=== PATIENT | female | born 1965 | race Caucasian/White ===

== ENCOUNTER 2024-02-04 16:42 | Emergency (ER) | payer OTHER, SELFPAY ==
[2024-02-04] VITALS (12 sets, daily range): BP systolic 136–165; BP diastolic 89–96; PULSE 89–119; RESP 18–23; TEMP 36.8; O2SAT 97–100
--- NOTE | ~2024-02-04 | CT_ITS ---
CT abdomen pelvis w con Ordering provider: Keshia Hurst MD History: 58 years Female with . VOMITING . Comparison: None. Technique: CT abdomen and pelvis with IV and without oral contrast. Automated exposure control and it erative reconstruction technique were employed. The dose-length product was 778.07 mGy-cm. Findings: VISUALIZED LOWER CHEST: Dependent atelectatic changes. UPPER ABDOMINAL ORGANS: Liver: Normal. Gallbladder: Normal. Spleen: Normal. Stomach/duodenum: Gastrostomy tube is noted. Thickened lower esophagus wall which may indicate reflux esophagitis. Pancreas: Normal. Adrenals: Normal. Kidneys: Normal. PELVIC ORGANS: The bladder shows slightly thickened wall. Calcified areas seen in the right side of t he bladder suggestive of a stone. BOWEL AND MESENTERY: Colon: No evidence of diverticulitis. Impacted fecal material is seen in the rectum. Proctitis is als o noted. Normal appendix. Small Bowel: Normal. No obstruction. Peritoneum/mesentery: No free air or free fluid. No mesenteric lymphadenopathy. RETROPERITONEUM: Mild atheromatous disease of the abdominal aorta. No retroperitoneal lymphadenopat hy. MUSCULOSKELETAL: Superficial soft tissues: The superficial soft tissues are normal. Bones: Age appropriate degenerative changes of the spine. bilateral hip arthroplasty. Bilateral sacro iliitis. IMPRESSION: 1. Gastrostomy tube with no definite complication. 2. Thickened lower esophagus which may indicate reflux esophagitis. 3. Thickened wall of the urinary bladder which may indicate cystitis. 4. Stone is highly suggestive in the right side of the posterior aspect of the urinary bladder. 5. Impacted fecal material in the rectum with minimal proctitis. Reviewed, dictated and finalized at location A.
[2024-02-04 17:20] LABS: Basophils Absolute Auto 0.1 K/mm3 (0.0-0.1); Basophils Percent Auto 0.5 % (0.2-1.2); Eosinophils Absolute Auto 0.1 K/mm3 (0-0.3); Eosinophils Percent Auto 0.9 % (0-4.4); Hematocrit 41.3 % (37.0-47.0); Hemoglobin 13.3 g/dL (12.0-15.0); Immature Granulocyte Absolute 0.15 K/mm3 (0.00-0.031); Immature Platelet Fraction Pct 4.8 % (0.9-11.2); Lymphocytes Absolute Auto 2.68 K/mm3 (0.9-3.2); Mean Corpuscular HGB Conc 32.2 g/dl (32-36); Mean Corpuscular Hemoglobin 29.6 pg (26-34); Mean Platelet Volume 10.6 fl (7.4-10.4); Monocytes Percent Auto 6.4 % (2.6-8.5); Neutrophils Absolute Auto 10.9 K/mm3 (1.3-6.7); Neutrophils Percent Auto 73.2 % (45.5-73.1); Platelet Count Result 489 k/mm3 (150-375); Red Blood Count 4.49 M/mm3 (4.2-5.4); Red Cell Distribution Width 12.9 % (11.5-14.5); White Blood Count 14.9 K/mm3 (4.5-10.0)
[2024-02-04 17:34] LABS: Add Urine Microscopic? NO; Appearance Urine Clear (Clear); Bilirubin Urine Negative (Negative); Blood Urine Negative (Negative); Color Urine Yellow (Yellow); Glucose Urine UA Negative (Negative); Ketones Urine Negative (Negative); Leukocyte Esterase Ur Negative LEU/UL (Negative); Nitrate Urine Negative (Negative); Protein Urine Negative (Negative); Specific Grav Ur 1.016 (1.001-1.035); pH Urine 7.5 (5.0-9.0)
[2024-02-04 19:10] LABS: Alanine Aminotransferase 28 U/L (6-35); Alkaline Phosphatase 105 U/L (38-126); Anion Gap 8 mmol/L (4-12); Aspartate Amino Transferase 27 U/L (14-36); Bilirubin,Total 0.4 mg/dL (0.2-1.3); Blood Urea Nitrogen 15 mg/dL (7-17); Calcium 9.2 mg/dL (8.4-10.2); Carbon Dioxide 31 mmol/L (22-30); Chloride 100 mmol/L (98-107); Estimated Glomerular Filt Rate > 60; Glucose 102 mg/dL (65-110); Lipase 371 U/L (23-300); Sodium 139 mmol/L (137-145)
--- NOTE | 2024-02-04 19:17 | ED_ITS ---
HPI - Nausea/Vomiting/Diarrhea General Chief complaint: Nausea/Vomiting/Diarrhea Stated complaint: coffee ground emesis Time Seen by Provider: 02/04/24 19:06 Source: EMS Mode of arrival: EMS History of Present Illness HPI Narrative: 58 YEARS OLD WHITE MALE, CAME FROM [facility]ISON BY AMBULANCE BECAUSE OF TOE EPISODE OF COFFEE-GROUND EMESIS. STARTED 10 HOURS PRIOR TO ARRIVAL TO THE EMERGENCY ROOM HISTORY OF CVA RIGHT HEMIPLEGIA, ANSWER QUESTIONS ONLY YES ANY TIME TRYING TO COMMUNICATE. Related Data Allergies Allergy/AdvReac Type Severity Reaction Status Date / Time No Known Allergies Allergy Verified 02/04/24 20:30 Review of Systems Review of Systems: ROS unobtainable: Yes unobtainable due to medical condition and unobtainable due to mental status Exam Narrative: GENERAL APPEARANCE: WELL-DEVELOPED, WELL-NOURISHED SKIN: NORMAL COLOR HEAD: NORMOCEPHALIC, NONTRAUMATIC EYES: CLEAR CONJUNCTIVA ENT: OROPHARYNX NORMAL, EARS NORMAL, NOSE NORMAL NECK: SUPPLE, NONTENDER CHEST AND RESPIRATORY: AIRWAY PATENT, NO RESPIRATORY DISTRESS, NO ACCESSORY MUSCLE USE HEART: REGULAR RATE/RHYTHM ABDOMEN: SOFT, NONTENDER, NO ORGANOMEGALY, QUIET BOWEL SOUNDS, FEEDING TUBE IN PLACE VASCULAR: NORMAL PERIPHERAL PULSES, NORMAL CAPILLARY REFILL. MUSCULOSKELETAL: RIGHT HEMIPLEGIA NEUROLOGIC: RIGHT HEMIPLEGIA, ANSWERING YES TO ANY COMMUNICATION Course Vital Signs Vital signs: Vital Signs Temperature 36.8 C 02/04/24 16:44 Pulse Rate 98 02/04/24 16:44 Respiratory Rate 23 H 02/04/24 16:44 Blood Pressure 136/92 H 02/04/24 16:44 Pulse Oximetry 97 02/04/24 16:44 Oxygen Delivery Room Air 02/04/24 16:44 Temperature 36.8 C 02/04/24 16:44 Pulse Rate 110 H 02/04/24 20:01 Respiratory Rate 21 H 02/04/24 20:01 Blood Pressure 136/93 H 02/04/24 20:01 Pulse Oximetry 100 02/04/24 20:01 Oxygen Delivery Room Air 02/04/24 16:44 MDM - Nausea/Vomiting/Diarrhea MDM Narrative Medical decision making narrative: PATIENT CAME WITH COFFEE-GROUND EMESIS 10 HOUR PRIOR TO ARRIVAL. VITAL SIGNS ARE STABLE PHYSICAL EXAMINATION SHOWING COMFORTABLE PATIENT NOT IN ANY PAIN OR DISTRESS, RECTAL EXAM IS GUAIAC NEGATIVE DIFFERENTIAL DIAGNOSIS INCLUDE GI BLEED, GASTRITIS, ESOPHAGITIS, G-TUBE COMPLICATION BLOOD WORKUP TODAY SHOWED WBC 14.9, PLATELET 489, LIPASE 371, URINALYSIS SHOWED NO ACUTE ABNORMALITIES CT ABDOMEN AND PELVIS WITH IV CONTRAST SHOWED REFLUX ESOPHAGITIS, BLADDER STONE, IMPACTED FECAL MATERIAL IN THE RECTUM WITH MINIMAL PROCTITIS Differential Diagnosis Differential diagnosis: Likely other ( ABOVE) Medical Records Attestation: I reviewed the patient's medical records. Lab Data Attestation: I reviewed the patient's lab results. 02/04/24 17:12 02/04/24 18:46 Labs: Lab Results 02/04/24 02/04/24 02/04/24 Range/Units 17:12 17:27 18:46 WBC 14.9 H (4.5-10.0) K/mm3 RBC 4.49 (4.2-5.4) M/mm3 Hgb 13.3 (12.0-15.0) g/dL Hct 41.3 (37.0-47.0) % MCV 92.0 (80-100) fl MCH 29.6 (26-34) pg MCHC 32.2 (32-36) g/dl RDW 12.9 (11.5-14.5) % Plt Count 489 H (150-375) k/mm3 MPV 10.6 H (7.4-10.4) fl Immature Gran % (Auto) 1.0 H (0-0.5) % Neut % (Auto) 73.2 H (45.5-73.1) % Lymph % (Auto) 18.0 L (18.3-44.2) % [place] % (Auto) 6.4 (2.6-8.5) % Eos % (Auto) 0.9 (0-4.4) % Baso % (Auto) 0.5 (0.2-1.2) % Lymph # (Auto) 2.68 (0.9-3.2) K/mm3 [place] # (Auto) 1.0 H (0.1-0.6) K/mm3 Eos # (Auto) 0.1 (0-0.3) K/mm3 Baso # (Auto) 0.1 (0.0-0.1) K/mm3 Abs Immat Gran (auto) 0.15 H (0.00-0.031) K/mm3 Absolute Neuts (auto) 10.9 H (1.3-6.7) K/mm3 Absolute Nucleated RBC 0.000 (0.0-0.012) K/mm3 Nucleated RBC % 0.0 (0.0-0.2) % % Immature Plt Fraction 4.8 (0.9-11.2) % Sodium 139 (137-145) mmol/L Potassium 4.0 (3.4-5.0) mmol/L Chloride 100 (98-107) mmol/L Carbon Dioxide 31 H (22-30) mmol/L Anion Gap 8 (4-12) mmol/L BUN 15 (7-17) mg/dL Creatinine 0.50 L (0.7-1.0) mg/dL Estim Creat Clear Calc Not Reportable Estimated GFR > 60 (59 - ) Glucose 102 (65-110) mg/dL Calcium 9.2 (8.4-10.2) mg/dL Total Bilirubin 0.4 (0.2-1.3) mg/dL AST 27 (14-36) U/L ALT 28 (6-35) U/L Alkaline Phosphatase 105 (38-126) U/L Total Protein 7.0 (6.3-8.2) g/dL Albumin 4.0 (3.5-5.1) g/dL Lipase 371 H (23-300) U/L Urine Color Yellow (Yellow) Urine Appearance Clear (Clear) Urine pH 7.5 (5.0-9.0) Ur Specific [place] 1.016 (1.001-1.035) Urine Protein Negative (Negative) mg/dL Urine Glucose (UA) Negative (Negative) mg/dL Urine Ketones Negative (Negative) mg/dL Ur Blood (Man) Negative (Negative) Urine Nitrate Negative (Negative) Urine Bilirubin Negative (Negative) Urine Urobilinogen 1.0 (<2.0) mg/dL Leukocyte Esterase Rfl Negative (Negative) AMINTA/UL Imaging Data Radiologist's impression: Impressions Abdomen/Pelvis CT 02/04/24 22:27 IMPRESSION: 1. Gastrostomy tube with no definite complication. 2. Thickened lower esophagus which may indicate reflux esophagitis. 3. Thickened wall of the urinary bladder which may indicate cystitis. 4. Stone is highly suggestive in the right side of the posterior aspect of the urinary bladder. 5. Impacted fecal material in the rectum with minimal proctitis. Critical Care Time Critical Care Time Critical Care Time: No Discharge Plan Discharge Clinical Impression: Esophagitis, Constipation, Bladder stone [facility]position[facility] Condition: Improved Instructions: Constipation (ED), Esophagitis (ED) Additional Instructions: RETURN IF SYMPTOMS ARE WORSENING , CALL YOUR FAMILY PHYSICIAN FOR APPOINTMENT, TAKE TYLENOL NEEDED FOR ACHES AND PAIN, CONTINUE HOME MEDICATIONS. FLEET ENEMA Prescriptions: New pantoprazole [Protonix] 40 mg tablet,delayed release (DR/EC) 40 mg PO QAM 30 Days Qty: 30 0RF polyethylene glycol 3350 [Miralax] 17 gram powder in packet 17 g PO QID Qty: 30 0RF
[2024-02-04] MEDS: SODIUM CHLORIDE 0.9% IV 1,000 ML 999 ML IV CONT (20:43)
--- NOTE | 2024-02-04 23:33 | PC.NURSE ---
this patient is vitally stable, pt is awaiting transportation. IV needs to be removed before d/c.
--- NOTE | 2024-02-04 23:46 | PC.NURSE ---
Called [facility] [place] [phone] and gave care and report to STACY Silverman. all questions answered.
[2024-02-05 00:36] VITALS: BP 158/94; PULSE 106; RESP 18; O2SAT 98
== END 2024-02-05 01:22 ==
PROVIDERS: Emergency Provider Emergency Medicine
DX: K20.90 Esophagitis, unspecified without bleeding (principal); K59.00 Constipation, unspecified; N21.0 Calculus in bladder; I69.351 Hemiplegia and hemiparesis following cerebral infarction affecting right dominant side
CPT/HCPCS: 36415; 74177; 80053; 81003; 83690; 85025; 85055; 96360; 99284; J7030; Q9967

== ENCOUNTER 2024-02-14 05:14 | Observation (INO) | payer OTHER, SELFPAY ==
[2024-02-14] VITALS (9 sets, daily range): BP systolic 120–156; BP diastolic 68–103; PULSE 78–132; RESP 16–22; TEMP 36.7–37.4; O2SAT 98–100
--- NOTE | ~2024-02-14 | XR_ITS ---
Portable chest x-ray Comparison: 08/19/2012 Clinical History: Heart failure Findings: Lungs are clear, without focal consolidation or pleural effusion. Cardiomediastinal silho uette is stable. Bones and soft tissues are unremarkable, aside from left shoulder arthroplasty. Impression: Clear lungs. Reviewed, dictated and finalized at [facility]. N BLIND LOOM TENDER Impression: Clear lungs.
--- NOTE | ~2024-02-14 | CT_ITS ---
CT of the Abdomen and Pelvis: Indication: Leukocytosis Technique: 2.5 mm axial scans were obtained through the abdomen and pelvis following intravenous adm inistration of 100 cc of Omnipaque 350. Dose reduction technique was used on this scan by utilizing a utomated exposure control and iterative reconstruction technique. The dose-length product (DLP) was 8 00.83 mGy-cm. COMPARISON: 02/04/2024 Findings: Scans through the lung bases are unremarkable. The liver, spleen, pancreas, gallbladder, adrenals and kidneys are within normal limits. No evidence of aortic aneurysm. No lymphadenopathy. There is very large amount of stool the rectum, compatible with fecal impaction. No bowel obstruction or abnormal bowel wall thickening evident. No abscess or free air. Images through the pelvis were performed. Questionable 1.1 cm mass at the posterior right side of the urinary bladder.. Impression: Fecal impaction. Questionable 1.1 cm mass at the posterior right side of the urinary bladder. Consider cystoscopy for direct evaluation. Reviewed, dictated and finalized at location . POLISHER Impression: Fecal impaction. Questionable 1.1 cm mass at the posterior right side of the urinary bladder. Co nsider cystoscopy for direct evaluation.
--- NOTE | 2024-02-14 05:29 | ECG_ITS ---
Test Date: 2024-02-14 05:34:25 Measurements Intervals Calvin Rate: 131 P: 65 CT: 132 QRS: 2 QRSD: 86 T: 104 QT: 315 QTc: 466 Interpretive Statements SINUS TACHYCARDIA LEFT VENTRICULAR HYPERTROPHY WITH ST-T CHANGE BASELINE ARTIFACT- I, II, AVR, AVL, V1-V2 ABNORMAL ECG No previous ECG available for comparison Electronically Signed On 02-14-2024 06:50:10 [employer]LECTION CLERK by Harpal Marcelino D.O.
--- NOTE | 2024-02-14 05:40 | ED.GIBLEED ---
HPI - GI Bleed General Chief complaint: Nausea/Vomiting/Diarrhea Stated complaint: vomiting Source: EMS and RN notes reviewed Mode of arrival: EMS History of Present Illness HPI Narrative: Patient presents From senior care via EMS with report of coffee-ground emesis x2 episodes. Is reported that at baseline he can only say yes and no. EMS administered 4 mg IV push Zofran. Patient was covered in dark vomit as well as feces upon arrival. He has a G-tube in place. he cannot meaningfully engage in history conversation. Related Data Allergies Allergy/AdvReac Type Severity Reaction Status Date / Time No Known Allergies Allergy Verified 02/07/24 15:47 [facility] Past Medical History Medical History (Updated 02/14/24 @ 08:39 by Yane Salomon MD) Cerebrovascular disease, unspecified Essential (primary) hypertension G tube feedings Generalized anxiety disorder Hyperlipidemia, unspecified Major depressive disorder, single episode, unspecified Other seizures Unspecified severe protein-calorie malnutrition Social History Social History Social History: Do Not Resuscitate (DNR) per [place] documentation Smoking status: Former smoker Additional living arrangements comments: Seen [employer] 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 Without evidence of furrowed brow or grimace. Patient does have dark vomitus on lips and remnants in acuna. HEAD: Normocephalic, atraumatic. EYES: Non injected, non icteric ENT: Nares clear, no rhinorrhea or epistaxis. NECK: Supple. CHEST: No respiratory distress. HEART: Regular rate and rhythm. . ABDOMEN: Soft, nondistended. G tube in place with granulation tissue and scabs surrounding it but otherwise without cellulitis, erythema, or purulent discharge. Rectal: exam performed with STACY Cheatham present. There is soft stool at the rectum, no evidence of hematochezia or melena. FOBT negative x2 windows. EXTREMITIES: Normal range of motion. No lower extremity edema. Moves extremities x4 and able to turn himself to the side. SKIN: Warm, dry, no rash. NEURO: No focal deficits. Alert. Only replies Yes/No Course Vital Signs Vital signs: Vital Signs Temperature 99.3 F 02/14/24 05:15 Pulse Rate 132 H 02/14/24 05:15 Respiratory Rate 22 H 02/14/24 05:15 Blood Pressure 146/96 H 02/14/24 05:15 Pulse Oximetry 100 02/14/24 05:15 Oxygen Delivery Room Air 02/14/24 05:15 Temperature 98.4 F 02/14/24 08:29 Pulse Rate 112 H 02/14/24 08:29 Respiratory Rate 20 02/14/24 08:29 Blood Pressure 156/97 H 02/14/24 08:29 Pulse Oximetry 98 02/14/24 08:29 Oxygen Delivery Room Air 02/14/24 05:15 MDM - GI Bleed MDM Narrative Medical decision making narrative: Patient presents with report coffee-ground emesis x2. He arrived in dark vomit and feces. In the emergency department he is afebrile with vital signs notable for mild hypertension, tachycardia, and tachypnea. Patient's senior care medication list is reviewed. Patient is on aspirin and clopidogrel but otherwise not on any NSAIDs, steroids, or anticoagulation. Patient has marked leukocytosis and he also has a thrombocytosis. Dar[place]-Blatchford bleeding score: Based on patient's Hgb, BUN, initial SBP, sex, heart rate, presence/absence of melena, syncope, hepatic disease, cardiac failure = 3 points, high risk GI bleed that is likely to require medical intervention such as transfusion, endoscopy, or surgery. CT scan without acute process. He does have notation of fecal impaction however stool was soft on rectal exam. there is also the incidental finding of a bladder mass. Discussed patient with tuberculosis specialist who will be consulted during patient's admission. Ordered IV fluids for patient's persistent tachycardia however he otherwise remains hemodynamically stable without hypotension. Discussed patient with on-call attending physician hospitalist Dr Ochoa. Will be a med-surg admission. DNR status per [facility] documentation. Differential Diagnosis Differential diagnosis: Likely esophageal varices, gastritis, Iraida-Meek syndrome, Upper gastrointestinal hemorrhage and hematochezia Medical Records Attestation: I reviewed the patient's medical records. Medical records narrative: from nursing facility Lab Data Attestation: I reviewed the patient's lab results. Lab results narrative: Normal renal function, no anemia. No marked electrolyte abnormalities. 02/14/24 05:47 02/14/24 05:47 Labs: Lab Results 02/14/24 02/14/24 Range/Units 05:47 06:22 WBC 25.2 H (4.5-10.0) K/mm3 RBC 4.55 (4.2-5.4) M/mm3 Hgb 13.5 (12.0-15.0) g/dL Hct 41.7 (37.0-47.0) % MCV 91.6 (80-100) fl MCH 29.7 (26-34) pg MCHC 32.4 (32-36) g/dl RDW 12.9 (11.5-14.5) % Plt Count 467 H (150-375) k/mm3 MPV 10.8 H (7.4-10.4) fl Immature Gran % (Auto) 0.6 H (0-0.5) % Neut % (Auto) 87.0 H (45.5-73.1) % Lymph % (Auto) 6.7 L (18.3-44.2) % [place] % (Auto) 5.0 (2.6-8.5) % Eos % (Auto) 0.3 (0-4.4) % Baso % (Auto) 0.4 (0.2-1.2) % Lymph # (Auto) 1.69 (0.9-3.2) K/mm3 [place] # (Auto) 1.3 H (0.1-0.6) K/mm3 Eos # (Auto) 0.1 (0-0.3) K/mm3 Baso # (Auto) 0.1 (0.0-0.1) K/mm3 Abs Immat Gran (auto) 0.15 H (0.00-0.031) K/mm3 Absolute Neuts (auto) 21.9 H (1.3-6.7) K/mm3 Absolute Nucleated RBC 0.000 (0.0-0.012) K/mm3 Nucleated RBC % 0.0 (0.0-0.2) % PT 13.4 (11.1-14.7) Seconds INR 1.0 APTT 26.9 (22.3-36.8) Seconds Sodium 138 (137-145) mmol/L Potassium 4.2 (3.4-5.0) mmol/L Chloride 99 (98-107) mmol/L Carbon Dioxide 28 (22-30) mmol/L Anion Gap 11 (4-12) mmol/L BUN 21 H (7-17) mg/dL Creatinine 0.40 L (0.7-1.0) mg/dL Estim Creat Clear Calc 134 ml/min Estimated GFR > 60 (59 - ) Glucose 128 H (65-110) mg/dL Lactic Acid 1.7 (0.7-2.0) mmol/L Calcium 9.2 (8.4-10.2) mg/dL Magnesium 2.1 (1.6-2.3) mg/dL Total Bilirubin 0.4 (0.2-1.3) mg/dL AST 36 (14-36) U/L ALT 33 (6-35) U/L Alkaline Phosphatase 127 H (38-126) U/L NT-Pro-B Natriuret Pep 139 H (19.9-100) pg/mL Total Protein 8.0 (6.3-8.2) g/dL Albumin 4.6 (3.5-5.1) g/dL Lipase 114 (23-300) U/L Blood Type O Positive Antibody Screen Negative Imaging Data Radiologist's impression: Impressions Chest X-Ray 02/14/24 07:02 Impression: Clear lungs. Abdomen/Pelvis CT 02/14/24 07:43 Impression: Fecal impaction. Questionable 1.1 cm mass at the posterior right side of the urinary bladder. Consider cystoscopy for direct evaluation. ECG Data EKG #1: Attestation: I personally reviewed and interpreted this ECG as follows: ECG completion date: 02/14/24 ECG completion time: 05:34 Interpretation: Sinus tachycardia a rate of 131 beats per minute. WI interval 132. QRS 86. QT/QTC 315/392. Pre populated algorithm suggests left ventricular hypertrophy but S wave depth in V1 + tallest R wave height in V5-6 is <35mm and R wave in lead I + S wave in lead III is <25mm. No T-wave inversions. T-waves do appear to be approximately the same height as the QRS complex in V3 but otherwise do not appear peaked in other leads. Good R-wave progression across the precordial leads. Questionable ST depressions in lateral precordial leads V4, V5, and V6. Discharge Plan Discharge Clinical Impression: Coffee ground emesis, Leukocytosis, Thrombocytosis, Fecal impaction, Mass of urinary bladder Patient Disposition: Still a Patient Condition: Stable Prescriptions: No Action cephalexin 500 mg capsule 500 mg PO Q6H 7 Days Qty: 28 0RF polyethylene glycol 3350 [Miralax] 17 gram powder in packet 17 g feeding tube DAILY 4 Days Qty: 14 0RF pantoprazole [Protonix] 40 mg tablet,delayed release (DR/EC) 40 mg PO QAM 30 Days Qty: 30 0RF polyethylene glycol 3350 [Miralax] 17 gram powder in packet 17 g PO QID Qty: 30 0RF Follow-up/Referrals: UNKNOWN,DOCTOR [Primary Care Provider] -
[2024-02-14] MEDS: SODIUM CHLORIDE 0.9% IV 1,000 ML 999 ML IV CONT ×2 (05:50→08:28)
[2024-02-14] MEDS: PANTOPRAZOLE SODIUM IV 40 MG VIAL 80 MG IV PUSH (05:50)
--- NOTE | 2024-02-14 05:56 | PC.NURSE ---
Addendum entered by Chaparrita Jorge RN 02/14/24 05:57: pt received a partial bed bath. Original Note: upon patient arrival patient was covered head to toe in dried feces and vomit.
[2024-02-14 06:06] LABS: Basophils Absolute Auto 0.1 K/mm3 (0.0-0.1); Basophils Percent Auto 0.4 % (0.2-1.2); Eosinophils Absolute Auto 0.1 K/mm3 (0-0.3); Eosinophils Percent Auto 0.3 % (0-4.4); Hematocrit 41.7 % (37.0-47.0); Hemoglobin 13.5 g/dL (12.0-15.0); Immature Granulocyte Absolute 0.15 K/mm3 (0.00-0.031); Immature Granulocyte Percent A 0.6 % (0-0.5); Lymphocytes Absolute Auto 1.69 K/mm3 (0.9-3.2); Lymphocytes Percent Auto 6.7 % (18.3-44.2); Mean Corpuscular HGB Conc 32.4 g/dl (32-36); Mean Corpuscular Hemoglobin 29.7 pg (26-34); Mean Corpuscular Volume 91.6 fl (80-100); Mean Platelet Volume 10.8 fl (7.4-10.4); Monocytes Absolute Auto 1.3 K/mm3 (0.1-0.6); Neutrophils Absolute Auto 21.9 K/mm3 (1.3-6.7); Platelet Count Result 467 k/mm3 (150-375); Red Blood Count 4.55 M/mm3 (4.2-5.4); Red Cell Distribution Width 12.9 % (11.5-14.5); White Blood Count 25.2 K/mm3 (4.5-10.0)
[2024-02-14 06:15] LABS: Prothrombin Time 13.4 Seconds (11.1-14.7)
[2024-02-14 06:16] LABS: Partial Thromboplastin Time 26.9 Seconds (22.3-36.8)
[2024-02-14 06:21] LABS: Magnesium 2.1 mg/dL (1.6-2.3)
[2024-02-14 06:22] LABS: Alanine Aminotransferase 33 U/L (6-35); Albumin Level 4.6 g/dL (3.5-5.1); Alkaline Phosphatase 127 U/L (38-126); Anion Gap 11 mmol/L (4-12); Aspartate Amino Transferase 36 U/L (14-36); Bilirubin,Total 0.4 mg/dL (0.2-1.3); Blood Urea Nitrogen 21 mg/dL (7-17); Calcium 9.2 mg/dL (8.4-10.2); Carbon Dioxide 28 mmol/L (22-30); Chloride 99 mmol/L (98-107); Estimated CRCL calculation 134 ml/min; Estimated Glomerular Filt Rate > 60; Glucose 128 mg/dL (65-110); Lipase 114 U/L (23-300); Potassium 4.2 mmol/L (3.4-5.0); Sodium 138 mmol/L (137-145)
[2024-02-14 06:37] LABS: Lactic Acid Reflex 1.7 mmol/L (0.7-2.0)
[2024-02-14 07:37] LABS: NT Pro B Type Natriuretic Pept 139 pg/mL (19.9-100)
--- NOTE | 2024-02-14 09:09 | ADMGEN ---
This patient, Cale Steve, was admitted to Medical Room 249-01. Patient/family oriented to hospital policies and general routines including ID bracelet, bed and alarms, visiting hours, pain management, procedures, bathroom and other care routines, personal items, smoking policy, room service/diet, and visiting hours. Information on how to activate the Rapid Response Team has been discussed. Patient/Family are encouraged to report perceived risks to care and to ask questions if they do not understand what they are told or what they should do.
[2024-02-14] MEDS: ONDANSETRON INJ 4 MG/2 ML VIAL IV PUSH ×2 (10:05→20:28)
--- NOTE | 2024-02-14 12:16 | P.HP_ITS ---
H&P: HPI History of Present Illness Date/Time: 02/14/24 12:16 Chief Complaint: Coffee ground emesis Narrative: As per ED Note : Patient presents From longterm via EMS with report of coffee-ground emesis x2 episodes. Is reported that at baseline he can only say yes and no. EMS administered 4 mg IV push Zofran. Patient was covered in dark vomit as well as feces upon arrival. He has a G-tube in place. he cannot meaningfully engage in history conversation. Upon evaluation, the patient answered yes or no. The patient is not able to give any reliable information. I called his daughter, , who reported that the patient suffered a stroke in September 2023 with right-sided hemiparesis and [facility] Before the stroke, the patient used to live with his daughter, but after the CVA, the patient lived in a longterm. The patient has a G-tube as well. The patient's daughter reports most of the vomiting happens due to feeding while his bed is flat. Other than the past medical history of stroke, she was not able to recollect any history. She will see his father tomorrow at the hospital. As per the ED physician, the patient was brought due to coffee- ground emesis and feces. CT shows a tremendous amount of stool in the rectum, compatible with fecal impaction. We will do a suppository, and if it does not relieve the fecal impaction, we recommend fiberoptic disimpaction by GI. GI ev aluated the patient and possible endoscopy tomorrow. Also, the CT scan shows a questionable 1.1 cm mass at the right posterior side of the urinary bladder. Urology is consulted. The patient's WBC is 25.2 even though the reactive leukocytosis can be due to the PEG tube; with his elevated WBC, possible aspiration PNA happened. The patient is started on Zosyn, and it will be deescalated if no source of infection is found. Urinalysis shows no significant findings.CXR is normal. Off note:repeat hemoglobin at 5:00 p.m. shows 11.5. Will repeat hemoglobin at 11pm. 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) Cerebrovascular disease, unspecified Essential (primary) hypertension G tube feedings Generalized anxiety disorder Hyperlipidemia, unspecified Major depressive disorder, single episode, unspecified Other seizures Unspecified severe protein-calorie malnutrition Family History Family History Other Unknown family medical history Social History Social History Social History: Do Not Resuscitate (DNR) per [place] documentation Smoking status: Former smoker Alcohol intake: unknown Substance use: unknown Substance use type: unknown Do You Feel Safe in your Home?: Yes Lack of Transportation: No Lack of Food: Never True Current Housing: I Have Housing Concerned About Future Housing: No Difficulty Paying Gas/Electric Bills: No Difficulty Paying for Meds: No Currently Unemployed: No Education: Don't Know Difficulty w/ Childcare or Family Care: No Additional living arrangements comments: [facility] [place] Occupation/Education: retired 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 Spiritual care concerns: No Meds Home Medications and Allergies Home Medications Medication Instructions Recorded Confirmed Type polyethylene glycol 3350 17 gram 17 g feeding tube DAILY 4 days #14 12/21/23 02/14/24 Rx oral powder packet (Miralax) ea Adult One Daily Multivitamin 1 tablet feeding tube DAILY 02/14/24 02/14/24 History acetaminophen 325 mg capsule 650 mg feeding tube TID PRN Pain 02/14/24 02/14/24 History aluminum-mag hydroxide-simethicone 10 ml feeding tube DAILY PRN 02/14/24 02/14/24 History 200 mg-200 mg-20 mg/5 mL oral susp (Drug) Ingestion aripiprazole 10 mg tablet 10 mg feeding tube DAILY 02/14/24 02/14/24 History aspirin 81 mg chewable tablet 81 mg feeding tube DAILY 02/14/24 02/14/24 History atorvastatin 80 mg tablet 80 mg feeding tube DAILY 02/14/24 02/14/24 History clopidogrel 75 mg tablet 75 mg PO DAILY 02/14/24 02/14/24 History fluoxetine 20 mg tablet 20 mg feeding tube DAILY 02/14/24 02/14/24 History hydroxyzine HCl 25 mg tablet 25 mg feeding tube BID 02/14/24 02/14/24 History levetiracetam 1,000 mg tablet 1,000 mg PO DAILY 02/14/24 02/14/24 History promethazine 12.5 mg tablet 12.5 mg feeding tube BID PRN Nausea 02/14/24 02/14/24 History sennosides 8.6 mg capsule (senna) 8.6 mg feeding tube DAILY 02/14/24 02/14/24 History thiamine HCl (vitamin B1) 100 mg 100 mg feeding tube DAILY 02/14/24 02/14/24 History tablet trazodone 50 mg tablet 50 mg feeding tube HS 02/14/24 02/14/24 History Allergies Allergy/AdvReac Type Severity Reaction Status Date / Time No Known Allergies Allergy Verified 02/14/24 09:14 Vital Signs Vital Signs - 24 hr 02/14/24 05:15 02/14/24 05:30 02/14/24 05:29 Temperature 99.3 F Pulse Rate 132 H 123 H 130 H Respiratory Rate 22 H 16 21 H Blood Pressure 146/96 H 146/96 H Pulse Oximetry 100 98 98 Oxygen Delivery Room Air 02/14/24 05:31 02/14/24 06:30 02/14/24 08:29 Temperature 98.4 F Pulse Rate 122 H 116 H 112 H Respiratory Rate 16 19 20 Blood Pressure 146/103 H 156/97 H Pulse Oximetry 98 100 98 Oxygen Delivery 02/14/24 10:16 Temperature Pulse Rate Respiratory Rate Blood Pressure Pulse Oximetry Oxygen Delivery Room Air Exam Narrative: GENERAL: chronically ill appearing, appears older than stated age but in no acute distress. Without evidence of furrowed brow or grimace. Patient does have dark vomitus on lips and remnants in acuna. HEAD: Normocephalic, atraumatic. EYES: Non injected, non icteric ENT: Nares clear, no rhinorrhea or epistaxis. NECK: Supple. CHEST: No respiratory distress. HEART: Regular rate and rhythm. . ABDOMEN: Soft, nondistended. G tube in place with granulation tissue and scabs surrounding it but otherwise without cellulitis, erythema, or purulent discharge. Rectal: exam performed with STACY Cheatham present. There is soft stool at the rectum, no evidence of hematochezia or melena. FOBT negative x2 windows. EXTREMITIES: Normal range of motion. No lower extremity edema. Moves extremities x4 and able to turn himself to the side. SKIN: Warm, dry, no rash. NEURO: No focal deficits. Alert. Only replies Yes/No H&P: Results Labs Labs: Short CBC 02/14/24 Range/Units 05:47 WBC 25.2 H (4.5-10.0) K/mm3 Hgb 13.5 (12.0-15.0) g/dL Hct 41.7 (37.0-47.0) % Plt Count 467 H (150-375) k/mm3 BMP 02/14/24 05:47 Sodium 138 Potassium 4.2 Chloride 99 Carbon Dioxide 28 BUN 21 H Creatinine 0.40 L Glucose 128 H Calcium 9.2 Liver Function 02/14/24 Range/Units 05:47 Total Bilirubin 0.4 (0.2-1.3) mg/dL AST 36 (14-36) U/L ALT 33 (6-35) U/L Alkaline Phosphatase 127 H (38-126) U/L Albumin 4.6 (3.5-5.1) g/dL Assessment and Plan Assessment and plan (1) Coffee ground emesis: Code(s): K92.0 - Hematemesis Status: Acute (2) Leukocytosis: Code(s): D72.829 - Elevated white blood cell count, unspecified Status: Acute (3) Thrombocytosis: Code(s): D75.839 - Thrombocytosis, unspecified Status: Acute (4) Fecal impaction: Code(s): K56.41 - Fecal impaction Status: Acute (5) Mass of urinary bladder: Code(s): N32.89 - Other specified disorders of bladder Status: Acute Plan Coffee Ground Emesis -trending hemoglobin -hemoglobin 13.5 -repeat hemoglobin at 5:00 p.m. shows 11.5 -no episodes of vomiting after the admission -GI consulted -possible endoscopy tomorrow -NPO tonight Leukocytosis -WBC 25.2 -possible aspiration pneumonia -started on Zosyn -if no source of infection is found will deescalate the antibiotic in a day or 2 -chest x-ray negative for PNA -consider CT chest -urinalysis no significant findings Fecal impaction -Dulcolax suppository -if persist fiberoptic disimpaction by GI Bladder mass -CT scan shows 1.1 cm mass at the posterior right side of the urinary bladder.. -urology following Disposition: Possible EGD tomorrow DVT prophylaxis SCD Pharmacological prophylaxis after the EGD GI prophylaxis Protonix 40 b.i.d. Hospitalist MIPS Advance Care Plan I have confirmed that the patient's Advanced Care Plan is present, code status is documented, or surrogate decision maker is listed in patient medical record.: Yes Medication Reconciliation I have utilized all available resources to obtain, update and review the patients current medications (includes all prescriptions, OTC, herbals, cannabis, and nutritional supplements).: Yes
[2024-02-14] MEDS: PIPERACILLN/TAZ 3.375GM/NS50ML 3.375 GM/50 ML BAG IVPB ×2 (13:04→17:41)
[2024-02-14] MEDS: BISACODYL 10 MG SUPPOSITORY RECTAL (14:17)
[2024-02-14] MEDS: SODIUM CHLORIDE 0.9% IV 1,000 ML 80 ML IV CONT (14:17)
--- NOTE | 2024-02-14 14:27 | WPDGICN ---
Assessment and Plan Assessment and plan (1) Coffee ground emesis: Code(s): K92.0 - Hematemesis Status: Acute Assessment and Plan: iv protonix h/h normal will proceed with egd tomorrow, ? 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 Her has h/o CVA with aphasia and normally only responds with yes or no. Also G-tube in place, Rt sided hemiparesis and can not get history from him. He was found to have dark vomit as well as feces upon arrival. Daughter mentioned to primary team that he had stroke in September 2023 with right-sided hemiparesis and [facility] and then placed in a [facility]. CT shows a large amount of stool in the rectum, compatible with fecal impaction. Also had leukocytosis, normal h/h. 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) Cerebrovascular disease, unspecified Essential (primary) hypertension G tube feedings Generalized anxiety disorder Hyperlipidemia, unspecified Major depressive disorder, single episode, unspecified Other seizures Unspecified severe protein-calorie malnutrition Family History Family History Other Unknown family medical history Social History Social History Social History: Do Not Resuscitate (DNR) per [place] documentation Smoking status: Former smoker Alcohol intake: unknown Substance use: unknown Substance use type: unknown Do You Feel Safe in your Home?: Yes Lack of Transportation: No Lack of Food: Never True Current Housing: I Have Housing Concerned About Future Housing: No Difficulty Paying Gas/Electric Bills: No Difficulty Paying for Meds: No Currently Unemployed: No Education: Don't Know Difficulty w/ Childcare or Family Care: No Additional living arrangements comments: [facility] [place] Occupation/Education: retired 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 Spiritual care concerns: No Meds Home Medications and Allergies Home Medications Medication Instructions Recorded Confirmed Type polyethylene glycol 3350 17 gram 17 g feeding tube DAILY 4 days #14 12/21/23 02/14/24 Rx oral powder packet (Miralax) ea Adult One Daily Multivitamin 1 tablet feeding tube DAILY 02/14/24 02/14/24 History acetaminophen 325 mg capsule 650 mg feeding tube TID PRN Pain 02/14/24 02/14/24 History aluminum-mag hydroxide-simethicone 10 ml feeding tube DAILY PRN 02/14/24 02/14/24 History 200 mg-200 mg-20 mg/5 mL oral susp (Drug) Ingestion aripiprazole 10 mg tablet 10 mg feeding tube DAILY 02/14/24 02/14/24 History aspirin 81 mg chewable tablet 81 mg feeding tube DAILY 02/14/24 02/14/24 History atorvastatin 80 mg tablet 80 mg feeding tube DAILY 02/14/24 02/14/24 History clopidogrel 75 mg tablet 75 mg PO DAILY 02/14/24 02/14/24 History fluoxetine 20 mg tablet 20 mg feeding tube DAILY 02/14/24 02/14/24 History hydroxyzine HCl 25 mg tablet 25 mg feeding tube BID 02/14/24 02/14/24 History levetiracetam 1,000 mg tablet 1,000 mg PO DAILY 02/14/24 02/14/24 History promethazine 12.5 mg tablet 12.5 mg feeding tube BID PRN Nausea 02/14/24 02/14/24 History sennosides 8.6 mg capsule (senna) 8.6 mg feeding tube DAILY 02/14/24 02/14/24 History thiamine HCl (vitamin B1) 100 mg 100 mg feeding tube DAILY 02/14/24 02/14/24 History tablet trazodone 50 mg tablet 50 mg feeding tube HS 02/14/24 02/14/24 History Allergies Allergy/AdvReac Type Severity Reaction Status Date / Time No Known Allergies Allergy Verified 02/14/24 09:14 Vital Signs Vital Signs - 24 hr 02/14/24 05:15 02/14/24 05:30 02/14/24 05:29 Temperature 99.3 F Pulse Rate 132 H 123 H 130 H Respiratory Rate 22 H 16 21 H Blood Pressure 146/96 H 146/96 H Pulse Oximetry 100 98 98 Oxygen Delivery Room Air 02/14/24 05:31 02/14/24 06:30 02/14/24 08:29 Temperature 98.4 F Pulse Rate 122 H 116 H 112 H Respiratory Rate 16 19 20 Blood Pressure 146/103 H 156/97 H Pulse Oximetry 98 100 98 Oxygen Delivery 02/14/24 10:16 02/14/24 14:00 Temperature 98.1 F Pulse Rate 78 Respiratory Rate 18 Blood Pressure 120/68 Pulse Oximetry 100 Oxygen Delivery Room Air Exam Const: General: comfortable Other: chronically ill appearing HENMT: Face/Nose/Sinus: Normal nares present Eyes: General: appearance normal, both eyes and all related structures Neck: Neck: supple Resp: Effort & Inspection: normal respiratory effort Cardio: Rate: regular rate GI: GI Palp: Yes Soft to palpation and No Tenderness to palpation present (GI) Auscultation: normal bowel sounds Other: G-tube in place Skin: General skin exam: normal color Neuro: Other: only will say yes or no, he has rt sided hemiparesis and aphasia Extrem: General: normal to inspection Psych: Other: unable to assess Results Labs 02/14/24 05:47 02/14/24 05:47 Labs: Short CBC 02/14/24 Range/Units 05:47 WBC 25.2 H (4.5-10.0) K/mm3 Hgb 13.5 (12.0-15.0) g/dL Hct 41.7 (37.0-47.0) % Plt Count 467 H (150-375) k/mm3 BMP 02/14/24 05:47 Sodium 138 Potassium 4.2 Chloride 99 Carbon Dioxide 28 BUN 21 H Creatinine 0.40 L Glucose 128 H Calcium 9.2 Liver Function 02/14/24 Range/Units 05:47 Total Bilirubin 0.4 (0.2-1.3) mg/dL AST 36 (14-36) U/L ALT 33 (6-35) U/L Alkaline Phosphatase 127 H (38-126) U/L Albumin 4.6 (3.5-5.1) g/dL
--- NOTE | 2024-02-14 16:27 | WPDURCON ---
Assessment and Plan Assessment and plan (1) Abnormal CT scan, bladder: Code(s): R93.41 - Abnormal radiologic findings on diagnostic imaging of renal pelvis, ureter, or bladder Status: Acute Assessment and Plan: Will need a flexible cystoscopy at some point to rule out bladder abnormality. Timing uncertain at this point. 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 He has been fully communicative and can only say yes and no answers. Not sure of his responses are appropriate. He is brought in from his [facility] with coffee-ground emesis and fecal impaction. As part of his workup CT scan was done which shows a possible 1 cm mass in the left posterior dependent portion of his bladder. Unable to obtain any other history from the patient. 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) Cerebrovascular disease, unspecified Essential (primary) hypertension G tube feedings Generalized anxiety disorder Hyperlipidemia, unspecified Major depressive disorder, single episode, unspecified Other seizures Unspecified severe protein-calorie malnutrition Family History Family History Other Unknown family medical history Social History Social History Social History: Do Not Resuscitate (DNR) per [place] documentation Smoking status: Former smoker Alcohol intake: unknown Substance use: unknown Substance use type: unknown Do You Feel Safe in your Home?: Yes Lack of Transportation: No Lack of Food: Never True Current Housing: I Have Housing Concerned About Future Housing: No Difficulty Paying Gas/Electric Bills: No Difficulty Paying for Meds: No Currently Unemployed: No Education: Don't Know Difficulty w/ Childcare or Family Care: No Additional living arrangements comments: [facility] Occupation/Education: retired 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 care concerns: No Meds Home Medications and Allergies Home Medications Medication Instructions Recorded Confirmed Type polyethylene glycol 3350 17 gram 17 g feeding tube DAILY 4 days #14 12/21/23 02/14/24 Rx oral powder packet (Miralax) ea Adult One Daily Multivitamin 1 tablet feeding tube DAILY 02/14/24 02/14/24 History acetaminophen 325 mg capsule 650 mg feeding tube TID PRN Pain 02/14/24 02/14/24 History aluminum-mag hydroxide-simethicone 10 ml feeding tube DAILY PRN 02/14/24 02/14/24 History 200 mg-200 mg-20 mg/5 mL oral susp (Drug) Ingestion aripiprazole 10 mg tablet 10 mg feeding tube DAILY 02/14/24 02/14/24 History aspirin 81 mg chewable tablet 81 mg feeding tube DAILY 02/14/24 02/14/24 History atorvastatin 80 mg tablet 80 mg feeding tube DAILY 02/14/24 02/14/24 History clopidogrel 75 mg tablet 75 mg PO DAILY 02/14/24 02/14/24 History fluoxetine 20 mg tablet 20 mg feeding tube DAILY 02/14/24 02/14/24 History hydroxyzine HCl 25 mg tablet 25 mg feeding tube BID 02/14/24 02/14/24 History levetiracetam 1,000 mg tablet 1,000 mg PO DAILY 02/14/24 02/14/24 History promethazine 12.5 mg tablet 12.5 mg feeding tube BID PRN Nausea 02/14/24 02/14/24 History sennosides 8.6 mg capsule (senna) 8.6 mg feeding tube DAILY 02/14/24 02/14/24 History thiamine HCl (vitamin B1) 100 mg 100 mg feeding tube DAILY 02/14/24 02/14/24 History tablet trazodone 50 mg tablet 50 mg feeding tube HS 02/14/24 02/14/24 History Allergies Allergy/AdvReac Type Severity Reaction Status Date / Time No Known Allergies Allergy Verified 02/14/24 09:14 Vital Signs Vital Signs - 24 hr 02/14/24 05:15 02/14/24 05:30 02/14/24 05:29 Temperature 99.3 F Pulse Rate 132 H 123 H 130 H Respiratory Rate 22 H 16 21 H Blood Pressure 146/96 H 146/96 H Pulse Oximetry 100 98 98 Oxygen Delivery Room Air 02/14/24 05:31 02/14/24 06:30 02/14/24 08:29 Temperature 98.4 F Pulse Rate 122 H 116 H 112 H Respiratory Rate 16 19 20 Blood Pressure 146/103 H 156/97 H Pulse Oximetry 98 100 98 Oxygen Delivery 02/14/24 10:16 02/14/24 14:00 Temperature 98.1 F Pulse Rate 78 Respiratory Rate 18 Blood Pressure 120/68 Pulse Oximetry 100 Oxygen Delivery Room Air Exam Const: General: healthy appearing, no acute distress and thin Nutritional Appearance: thin Orientation/consciousness: Other orientation findings (Unable to obtain) Limitations: physical limitations (Due to stroke and aphasia) HENMT: Head: normal to inspection Eyes: General: appearance normal, both eyes and all related structures Neck: Neck: normal visual inspection and full ROM Resp: Effort & Inspection: normal respiratory effort and no cough GI: Inspection: normal to inspection Skin: General skin exam: normal color, no rashes or lesions noted and elasticity normal Lesions: no lesions Rashes: no rashes Extrem: General: normal to inspection and abnormal ROM (Limited activity of his right upper extremity due to stroke) Psych: Appearance: well kempt Results Labs 02/14/24 05:47 02/14/24 05:47 Labs: Short CBC 02/14/24 Range/Units 05:47 WBC 25.2 H (4.5-10.0) K/mm3 Hgb 13.5 (12.0-15.0) g/dL Hct 41.7 (37.0-47.0) % Plt Count 467 H (150-375) k/mm3 BMP 02/14/24 05:47 Sodium 138 Potassium 4.2 Chloride 99 Carbon Dioxide 28 BUN 21 H Creatinine 0.40 L Glucose 128 H Calcium 9.2 Liver Function 02/14/24 Range/Units 05:47 Total Bilirubin 0.4 (0.2-1.3) mg/dL AST 36 (14-36) U/L ALT 33 (6-35) U/L Alkaline Phosphatase 127 H (38-126) U/L Albumin 4.6 (3.5-5.1) g/dL Imaging My impression: I reviewed his CT scan. There is a subtle finding on the floor of the left lateral portion of his bladder. Etiology uncertain even by my read
[2024-02-14] MEDS: levETIRAcetam 500 MG TABLET 1000 MG PO (16:32)
[2024-02-14] MEDS: hydrOXYzine HCL 25 MG TABLET FEED TUBE (16:32)
[2024-02-14 17:21] LABS: Hematocrit 36.7 % (42.0-52.0); Hemoglobin 11.5 g/dL (14.0-18.0)
[2024-02-14] MEDS: PANTOPRAZOLE SODIUM IV 40 MG VIAL IV PUSH (20:28)
[2024-02-14] MEDS: traZODone HCL 50 MG TABLET FEED TUBE (20:28)
[2024-02-14 23:13] LABS: Hematocrit 36.8 % (42.0-52.0); Hemoglobin 11.5 g/dL (14.0-18.0)
[2024-02-15] VITALS (8 sets, daily range): BP systolic 87–147; BP diastolic 56–79; PULSE 64–94; RESP 14–20; TEMP 36.8–36.9; O2SAT 96–99; BMI 20.6
[2024-02-15] MEDS: PIPERACILLN/TAZ 3.375GM/NS50ML 3.375 GM/50 ML BAG IVPB ×4 (00:50→17:20)
[2024-02-15] MEDS: SODIUM CHLORIDE 0.9% IV 1,000 ML 80 ML IV CONT ×2 (05:07→19:48)
[2024-02-15 06:08] LABS: Hematocrit 36.8 % (42.0-52.0); Hemoglobin 11.3 g/dL (14.0-18.0); Mean Corpuscular HGB Conc 30.7 g/dl (32-36); Mean Corpuscular Volume 94.6 fl (80-100); Mean Platelet Volume 11.1 fl (7.4-10.4); Platelet Count Result 341 k/mm3 (150-375); Red Blood Count 3.89 M/mm3 (4.6-6.20); Red Cell Distribution Width 13.2 % (11.5-14.5); White Blood Count 9.1 K/mm3 (4.5-10.0)
[2024-02-15 06:27] LABS: Alanine Aminotransferase 24 U/L (6-50); Albumin Level 3.8 g/dL (3.5-5.1); Alkaline Phosphatase 76 U/L (38-126); Anion Gap 7 mmol/L (4-12); Aspartate Amino Transferase 25 U/L (17-59); Bilirubin,Total 0.8 mg/dL (0.2-1.3); Blood Urea Nitrogen 14 mg/dL (9-20); Carbon Dioxide 28 mmol/L (22-30); Chloride 105 mmol/L (98-107); Estimated CRCL calculation 110 ml/min; Estimated Glomerular Filt Rate > 60; Glucose 75 mg/dL (65-110); Sodium 140 mmol/L (137-145)
[2024-02-15] MEDS: PANTOPRAZOLE SODIUM IV 40 MG VIAL IV PUSH ×2 (09:56→20:20)
--- NOTE | 2024-02-15 10:35 | P.PNIM_ITS ---
Progress Note: A&P Assessment and Plan (1) Coffee ground emesis: Code(s): K92.0 - Hematemesis Status: Acute (2) Leukocytosis: Code(s): D72.829 - Elevated white blood cell count, unspecified Status: Acute (3) Thrombocytosis: Code(s): D75.839 - Thrombocytosis, unspecified Status: Acute (4) Fecal impaction: Code(s): K56.41 - Fecal impaction Status: Acute (5) Mass of urinary bladder: Code(s): N32.89 - Other specified disorders of bladder Status: Acute Plan Coffee Ground Emesis -trending hemoglobin -hemoglobin 13.5 -repeat hemoglobin at 5:00 p.m. shows 11.5 -no episodes of vomiting after the admission -Endoscopy today, continue Protonix 40mg bid -GI following Leukocytosis, resolved -WBC 25.2, WBC 9.1 -possible aspiration pneumonia -chest x-ray negative for PNA -urinalysis no significant findings - Continue Zosyn -if no source of infection is found will deescalate the antibiotic in a day or 2 - maybe from dehydration Fecal impaction -Dulcolax suppository -nurse noted that patient is having bowel movement GI on board Bladder mass -CT scan shows 1.1 cm mass at the posterior right side of the urinary bladder.. -urology following, planning for cystoscopy DVT prophylaxis SCD Pharmacological prophylaxis after the EGD GI prophylaxis Protonix 40 b.i.d. Subjective Date/time seen: 02/15/24 10:35 Interval history: Patient comfortable at bedside and awaiting Endoscopy today Exam Narrative: GENERAL: chronically ill appearing, appears older than stated age but in no acute distress. Without evidence of furrowed brow or grimace. Patient does have dark vomitus on lips and remnants in acuna. HEAD: Normocephalic, atraumatic. EYES: Non injected, non icteric ENT: Nares clear, no rhinorrhea or epistaxis. NECK: Supple. CHEST: No respiratory distress. HEART: Regular rate and rhythm. . ABDOMEN: Soft, nondistended. G tube in place with granulation tissue and scabs surrounding it but otherwise without cellulitis, erythema, or purulent disch arge. Rectal: exam performed with STACY Cheatham present. There is soft stool at the rectum, no evidence of hematochezia or melena. FOBT negative x2 windows. EXTREMITIES: Normal range of motion. No lower extremity edema. Moves extremities x4 and able to turn himself to the side. SKIN: Warm, dry, no rash. NEURO: No focal deficits. Alert. Only replies Yes/No Objective Data Vital Signs Vital Signs: Vital Signs - 24 hr 02/14/24 14:00 02/14/24 20:59 02/14/24 20:00 Temperature 98.1 F 99.1 F Pulse Rate 78 89 89 Respiratory Rate 18 16 16 Blood Pressure 120/68 144/75 H Pulse Oximetry 100 100 100 Oxygen Delivery Room Air 02/15/24 06:00 02/15/24 08:42 Temperature 98.5 F Pulse Rate 76 Respiratory Rate 18 Blood Pressure 124/71 Pulse Oximetry 96 98 Oxygen Delivery Room Air Intake/Output Intake/Output: Intake & Output 02/12/24 02/13/24 02/14/24 02/15/24 23:59 23:59 23:59 23:59 Intake Total 2200 1050 Output Total 600 Balance 2200 450 Meds/Results Medications: Active Medications Generic Name Dose Route Start Last Admin Trade Name Freq PRN Reason Stop Dose Admin Acetaminophen 650 mg 02/14/24 08:06 Acetaminophen 325 Mg Tablet PO Q4H PRN Mild Pain (1-3) or Fever Aripiprazole 10 mg 02/15/24 09:00 Aripiprazole 10 Mg Tablet FEED TUBE DAILY [facility] Atorvastatin Calcium 80 mg 02/15/24 09:00 Atorvastatin 40 Mg Tablet FEED TUBE DAILY SHON Fluoxetine HCl 20 mg 02/15/24 09:00 Fluoxetine Hcl 20 Mg Capsule FEED TUBE DAILY SHON Hydroxyzine HCl 25 mg 02/14/24 17:00 02/15/24 10:04 Hydroxyzine Hcl 25 Mg Tablet FEED TUBE Not Given BID SHON Piperacillin/Tazobactam/Dextrose 3.375 gm in 50 mls @ 100 mls/hr 02/14/24 12:35 02/15/24 05:25 Zosyn 3.375 Gm/Ns 50 Ml IVPB 100 mls/hr Q6HR SHON Administration Sodium Chloride 1,000 mls @ 80 mls/hr 02/14/24 14:05 02/15/24 05:07 Normal Saline Iv IV CONT 80 mls/hr .[id number] SHON Administration Levetiracetam 1,000 mg 02/15/24 09:00 Levetiracetam 500 Mg Tablet PO DAILY SHON Ondansetron HCl 4 mg 02/14/24 08:06 02/14/24 20:28 Ondansetron Inj 4 Mg/2 Ml Vial IV PUSH 4 mg Q4H PRN Administration Nausea Pantoprazole Sodium 40 mg 02/14/24 21:00 02/15/24 09:56 Pantoprazole Sodium Iv 40 Mg Vial IV PUSH 40 mg Q12HR SHON Administration Promethazine HCl 12.5 mg 02/14/24 12:11 Promethazine Hcl 12.5 Mg Tablet FEED TUBE BID PRN Nausea Trazodone HCl 50 mg 02/14/24 21:00 02/14/24 20:28 Trazodone Hcl 50 Mg Tablet FEED TUBE 50 mg HS SHON Administration Radiology Results: ITS Impressions Chest X-Ray 02/14/24 07:02 Impression: Clear lungs. Abdomen/Pelvis CT 02/14/24 07:43 Impression: Fecal impaction. Questionable 1.1 cm mass at the posterior right side of the urinary bladder. Consider cystoscopy for direct evaluation. Labs Labs: Laboratory Results - last 24 hr 02/14/24 02/14/24 02/15/24 17:09 23:08 05:49 WBC 9.1 RBC 3.89 L Hgb 11.5 L 11.5 L 11.3 L Hct 36.7 L 36.8 L 36.8 L MCV 94.6 MCH 29.0 MCHC 30.7 L RDW 13.2 Plt Count 341 MPV 11.1 H Sodium 140 Potassium 4.0 Chloride 105 Carbon Dioxide 28 Anion Gap 7 BUN 14 D Creatinine 0.60 L Estim Creat Clear Calc 110 Estimated GFR > 60 Glucose 75 Calcium 9.0 Total Bilirubin 0.8 AST 25 ALT 24 Alkaline Phosphatase 76 Total Protein 7.0 Albumin 3.8
--- NOTE | 2024-02-15 11:11 | SUR.PREOP ---
Called and spoke with Swapna (dtr/POA) in regards to code status during EGD/sigmoidoscopy. Swapna wishes to treat Cale as a full code during his procedure. Code status formed witnessed and signed with second RN.
--- NOTE | 2024-02-15 11:12 | P.PNAN_ITS ---
Anes - Eval Pre Procedure Procedure: Operation Date: 02/15/24 15:30 Proposed Procedures p Esophagogastroduodenoscopy - Eamon Branch MD s Flexible Sigmoidoscopy - Eamon Branch MD Date/Time: 02/15/24 11:12 Surgeon: Domingo Pre Op Diagnosis: Coffee ground emesis Patient Data Age: 58 Gender: M Height: 1.83 m Weight: 68.9 kg Last Vital Signs Temp 98.5 F 02/15/24 06:00 Pulse 76 02/15/24 06:00 Resp 18 02/15/24 06:00 BP 124/71 02/15/24 06:00 Pulse Ox 98 02/15/24 08:42 O2 Del Method Room Air 02/15/24 11:10 Allergies Allergy/AdvReac Type Severity Reaction Status Date / Time No Known Allergies Allergy Verified 02/15/24 11:04 Home Medications Medication Instructions Recorded Confirmed Type polyethylene glycol 3350 17 gram 17 g feeding tube DAILY 4 days #14 12/21/23 02/14/24 Rx oral powder packet (Miralax) ea Adult One Daily Multivitamin 1 tablet feeding tube DAILY 02/14/24 02/14/24 History acetaminophen 325 mg capsule 650 mg feeding tube TID PRN Pain 02/14/24 02/14/24 History aluminum-mag hydroxide-simethicone 10 ml feeding tube DAILY PRN 02/14/24 02/14/24 History 200 mg-200 mg-20 mg/5 mL oral susp (Drug) Ingestion aripiprazole 10 mg tablet 10 mg feeding tube DAILY 02/14/24 02/14/24 History aspirin 81 mg chewable tablet 81 mg feeding tube DAILY 02/14/24 02/14/24 History atorvastatin 80 mg tablet 80 mg feeding tube DAILY 02/14/24 02/14/24 History clopidogrel 75 mg tablet 75 mg PO DAILY 02/14/24 02/14/24 History fluoxetine 20 mg tablet 20 mg feeding tube DAILY 02/14/24 02/14/24 History hydroxyzine HCl 25 mg tablet 25 mg feeding tube BID 02/14/24 02/14/24 History levetiracetam 1,000 mg tablet 1,000 mg PO DAILY 02/14/24 02/14/24 History promethazine 12.5 mg tablet 12.5 mg feeding tube BID PRN Nausea 02/14/24 02/14/24 History sennosides 8.6 mg capsule (senna) 8.6 mg feeding tube DAILY 02/14/24 02/14/24 History thiamine HCl (vitamin B1) 100 mg 100 mg feeding tube DAILY 02/14/24 02/14/24 History tablet trazodone 50 mg tablet 50 mg feeding tube HS 02/14/24 02/14/24 History Laboratory Tests 02/14/24 02/14/24 02/15/24 17:09 23:08 05:49 WBC 9.1 K/mm3 (4.5-10.0) RBC 3.89 L M/mm3 (4.6-6.20) Hgb 11.5 L g/dL 11.5 L g/dL 11.3 L g/dL (14.0-18.0) (14.0-18.0) (14.0-18.0) Hct 36.7 L % 36.8 L % 36.8 L % (42.0-52.0) (42.0-52.0) (42.0-52.0) MCV 94.6 fl (80-100) MCH 29.0 pg (26-34) MCHC 30.7 L g/dl (32-36) RDW 13.2 % (11.5-14.5) Plt Count 341 k/mm3 (150-375) MPV 11.1 H fl (7.4-10.4) Sodium 140 mmol/L (137-145) Potassium 4.0 mmol/L (3.4-5.0) Chloride 105 mmol/L (98-107) Carbon Dioxide 28 mmol/L (22-30) Anion Gap 7 mmol/L (4-12) BUN 14 D mg/dL (9-20) Creatinine 0.60 L mg/dL (0.7-1.3) Estim Creat Clear Calc 110 ml/min Estimated GFR > 60 (59 - ) Glucose 75 mg/dL (65-110) Calcium 9.0 mg/dL (8.4-10.2) Total Bilirubin 0.8 mg/dL (0.2-1.3) AST 25 U/L (17-59) ALT 24 U/L (6-50) Alkaline Phosphatase 76 U/L (38-126) Total Protein 7.0 g/dL (6.3-8.2) Albumin 3.8 g/dL (3.5-5.1) Patient hx anesthesia problems: none Family hx anesthesia problems: none Results Review: All pre-operative results and documents have been reviewed as part of the pre- operative evaluation. 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) Cerebrovascular disease, unspecified 09/2023 right hemiparesis Essential (primary) hypertension G tube feedings Generalized anxiety disorder Hyperlipidemia, unspecified Major depressive disorder, single episode, unspecified Other seizures Unspecified severe protein-calorie malnutrition Family History Family History Other Unknown family medical history Social History Social History Social History: Do Not Resuscitate (DNR) per [place] documentation Smoking status: Former smoker Alcohol intake: unknown Substance use: unknown Substance use type: unknown Do You Feel Safe in your Home?: Yes Lack of Transportation: No Lack of Food: Never True Current Housing: I Have Housing Concerned About Future Housing: No Difficulty Paying Gas/Electric Bills: No Difficulty Paying for Meds: No Currently Unemployed: No Education: Don't Know Difficulty w/ Childcare or Family Care: No Additional living arrangements comments: [facility] Occupation/Education: retired 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
[2024-02-15] MEDS: LACTATED RINGERS 1,000 ML 150 ML IV CONT (11:17)
[2024-02-15 11:19] LABS: Glucose Point of Care 65 mg/dl (65-105)
[2024-02-15] MEDS: DEXTROSE 50% 25 GM/50 ML SYRINGE IV PUSH (11:22)
--- NOTE | 2024-02-15 11:35 | P.PNAN_ITS ---
Anes - Eval Final PreProcedure Day of Procedure 02/15/24 11:35 Patient weight: normal Heart: regular rate and rhythm Lungs: clear to auscultation and decreased breath sounds Airway: Mallampati scale (edentulous) class II Neurological: other (pt alert, answers yes to all questions, no other words elicited. attempted to inquire if pt was able to say no pt became tearful) Last oral intake: >/= 8 hours ASA classification: III Emergent: no Anesthetic plan: proceed Anesthesia type and monitoring: general GIVS Results Review: All pre-operative results and documents have been reviewed as part of the pre- operative evaluation. Informed Consent: The patient's anesthetic plan and its attendant risks and benefits were discussed with the patient/family/POA. Questions were solicited and answers prov ided to the satisfaction of the patient/family/POA.
[2024-02-15 11:43] LABS: Glucose Point of Care 91 mg/dl (65-105)
[2024-02-15] MEDS: BENZOCAINE (*SP) 60 ML SPRAY CAN (HURRICAINE) 1 SPRAY MUCOUS MEM (11:45)
--- NOTE | 2024-02-15 11:56 | SUR.OPER ---
EGD end at 1150 COlon start at 1154
[2024-02-15 12:10] LABS: Glucose Point of Care 124 mg/dl (65-105)
[2024-02-15] MEDS: ATORVASTATIN 40 MG TABLET 80 MG FEED TUBE (12:55)
[2024-02-15] MEDS: levETIRAcetam 500 MG TABLET 1000 MG PO (12:55)
[2024-02-15] MEDS: ARIPiprazole 10 MG TABLET FEED TUBE (12:55)
[2024-02-15] MEDS: FLUoxetine HCL 20 MG CAPSULE FEED TUBE (12:55)
--- NOTE | 2024-02-15 13:03 | PCDIET ---
NH tube feed orders: Jevity 1.5 @ 70ml/hr over 22 hrs with 200ml flush q 4 hrs. This totals: 2310kcals, 98g protein, 2370ml free water. *Initiate feeds at 20ml/hr and advance by 10mls q 4 hrs as tolerated.
--- NOTE | 2024-02-15 13:11 | PCOTNOTE ---
Pt. is dependent at baseline, longterm at long-term. Per family, pt. is bedbound at facility. Not appropriate for therapy at this time. Re-order if appropriate.
--- NOTE | 2024-02-15 13:57 | PC.NURSE ---
On 02/15/24, the student, [Heather Laws], provided care and completed [facility] documentation on this patient. I have reviewed the student's documentation and agree with the findings.
--- NOTE | 2024-02-15 15:12 | PCPTNOTE ---
Pt. is dependent at baseline, nursing home at group home. Per family, pt. is bedbound at facility. Spoke with Care coordination. There are no discharge needs from a therapy side.
[2024-02-15] MEDS: hydrOXYzine HCL 25 MG TABLET FEED TUBE (17:20)
[2024-02-15] MEDS: traZODone HCL 50 MG TABLET FEED TUBE (20:20)
[2024-02-15 21:53] LABS: Glucose Point of Care 107 mg/dl (65-105)
[2024-02-16] MEDS: PIPERACILLN/TAZ 3.375GM/NS50ML 3.375 GM/50 ML BAG IVPB ×4 (00:28→17:05)
[2024-02-16 05:08] VITALS: BP 137/78; PULSE 72; RESP 14; TEMP 36.7; O2SAT 98
[2024-02-16 05:41] LABS: Basophils Percent Auto 0.4 % (0.2-1.2); Eosinophils Absolute Auto 0.2 K/mm3 (0-0.3); Eosinophils Percent Auto 1.9 % (0-4.4); Hematocrit 30.3 % (42.0-52.0); Hemoglobin 9.4 g/dL (14.0-18.0); Immature Granulocyte Absolute 0.03 K/mm3 (0.00-0.031); Immature Granulocyte Percent A 0.4 % (0-0.5); Lymphocytes Absolute Auto 2.09 K/mm3 (0.9-3.2); Lymphocytes Percent Auto 26.8 % (18.3-44.2); Mean Corpuscular Hemoglobin 28.7 pg (26-34); Mean Corpuscular Volume 92.4 fl (80-100); Mean Platelet Volume 11.2 fl (7.4-10.4); Monocytes Absolute Auto 0.7 K/mm3 (0.1-0.6); Monocytes Percent Auto 8.8 % (2.6-8.5); Neutrophils Absolute Auto 4.8 K/mm3 (1.3-6.7); Neutrophils Percent Auto 61.7 % (45.5-73.1); Platelet Count Result 299 k/mm3 (150-375); Red Blood Count 3.28 M/mm3 (4.6-6.20); Red Cell Distribution Width 12.9 % (11.5-14.5); White Blood Count 7.8 K/mm3 (4.5-10.0)
[2024-02-16 05:55] LABS: Alanine Aminotransferase 19 U/L (6-50); Albumin Level 3.5 g/dL (3.5-5.1); Alkaline Phosphatase 72 U/L (38-126); Anion Gap 5 mmol/L (4-12); Aspartate Amino Transferase 21 U/L (17-59); Bilirubin,Total 0.4 mg/dL (0.2-1.3); Blood Urea Nitrogen 10 mg/dL (9-20); Calcium 8.2 mg/dL (8.4-10.2); Carbon Dioxide 28 mmol/L (22-30); Chloride 104 mmol/L (98-107); Estimated CRCL calculation 110 ml/min; Estimated Glomerular Filt Rate > 60; Glucose 109 mg/dL (65-110); Magnesium 1.9 mg/dL (1.6-2.3); Potassium 3.5 mmol/L (3.4-5.0); Sodium 137 mmol/L (137-145)
--- NOTE | 2024-02-16 07:21 | P.PNUR_ITS ---
Progress Note: A&P Assessment and Plan (1) Mass of urinary bladder: Code(s): N32.89 - Other specified disorders of bladder Status: Acute Assessment and Plan: * Progress noted * Will plan cystoscopy, possible TURBT tomorrow Subjective Subjective Date/Time Seen: 02/16/24 07:21 Interval history: Seems comfortable Review of Systems Review of Systems: ROS unobtainable: Yes other Exam Const: General: no acute distress Resp: Effort & Inspection: normal respiratory effort GI: Inspection: non-distended GI Palp: No abdominal tenderness and No Guarding due to palpation present (GI) Auscultation: normal bowel sounds Objective Data Vital Signs Vital Signs: Vital Signs - 24 hr 02/15/24 08:42 02/15/24 11:10 02/15/24 11:15 Temperature 98.2 F Pulse Rate 91 Respiratory Rate 20 Blood Pressure 140/79 Pulse Oximetry 98 98 Oxygen Delivery Room Air Room Air Room Air 02/15/24 12:03 02/15/24 12:13 02/15/24 12:23 Temperature Pulse Rate 86 76 64 Respiratory Rate 20 17 14 Blood Pressure 88/57 L 87/56 L 108/56 L Pulse Oximetry 99 98 98 Oxygen Delivery Room Air Room Air Room Air 02/15/24 13:00 02/15/24 19:51 02/15/24 20:18 Temperature 98.2 F 98.4 F Pulse Rate 75 94 Respiratory Rate 18 16 Blood Pressure 147/77 H 123/78 Pulse Oximetry 99 98 Oxygen Delivery Room Air 02/16/24 05:08 Temperature 98.0 F Pulse Rate 72 Respiratory Rate 14 Blood Pressure 137/78 Pulse Oximetry 98 Oxygen Delivery Intake/Output Intake/Output: Intake & Output 02/13/24 02/14/24 02/15/24 02/16/24 23:59 23:59 23:59 23:59 Intake Total 2200 2700 50 Output Total 950 1600 Balance 2200 1750 -1550 Meds/Results Medications: Active Medications Generic Name Dose Route Start Last Admin Trade Name Freq PRN Reason Stop Dose Admin Acetaminophen 650 mg 02/14/24 08:06 Acetaminophen 325 Mg Tablet PO Q4H PRN Mild Pain (1-3) or Fever Aripiprazole 10 mg 02/15/24 09:00 02/15/24 12:55 Aripiprazole 10 Mg Tablet FEED TUBE 10 mg DAILY SHON Administration Atorvastatin Calcium 80 mg 02/15/24 09:00 02/15/24 12:55 Atorvastatin 40 Mg Tablet FEED TUBE 80 mg DAILY SHON Administration Fluoxetine HCl 20 mg 02/15/24 09:00 02/15/24 12:55 Fluoxetine Hcl 20 Mg Capsule FEED TUBE 20 mg DAILY SHON Administration Hydroxyzine HCl 25 mg 02/14/24 17:00 02/15/24 17:20 Hydroxyzine Hcl 25 Mg Tablet FEED TUBE 25 mg BID SHON Administration Piperacillin/Tazobactam/Dextrose 3.375 gm in 50 mls @ 100 mls/hr 02/14/24 12:35 02/16/24 05:07 Zosyn 3.375 Gm/Ns 50 Ml IVPB 100 mls/hr Q6HR SHON Administration Sodium Chloride 1,000 mls @ 80 mls/hr 02/14/24 14:05 02/15/24 19:48 Normal Saline Iv IV CONT 80 mls/hr .[id number] SHON Administration Levetiracetam 1,000 mg 02/15/24 09:00 02/15/24 12:55 Levetiracetam 500 Mg Tablet PO 1,000 mg DAILY SHON Administration Ondansetron HCl 4 mg 02/14/24 08:06 02/14/24 20:28 Ondansetron Inj 4 Mg/2 Ml Vial IV PUSH 4 mg Q4H PRN Administration Nausea Pantoprazole Sodium 40 mg 02/14/24 21:00 02/15/24 20:20 Pantoprazole Sodium Iv 40 Mg Vial IV PUSH 40 mg Q12HR SHON Administration Polyethylene Glycol 17 gm 02/16/24 09:00 Polyethylene Glycol 3350 17 Gm Powd.Pack PO QAM SHON Promethazine HCl 12.5 mg 02/14/24 12:11 Promethazine Hcl 12.5 Mg Tablet FEED TUBE BID PRN Nausea Trazodone HCl 50 mg 02/14/24 21:00 02/15/24 20:20 Trazodone Hcl 50 Mg Tablet FEED TUBE 50 mg HS SHON Administration Radiology Results: ITS Impressions Chest X-Ray 02/14/24 07:02 Impression: Clear lungs. Abdomen/Pelvis CT 02/14/24 07:43 Impression: Fecal impaction. Questionable 1.1 cm mass at the posterior right side of the urinary bladder. Consider cystoscopy for direct evaluation. Labs Labs: Laboratory Results - last 24 hr 02/15/24 02/15/24 02/15/24 11:16 11:38 12:08 WBC RBC Hgb Hct MCV MCH MCHC RDW Plt Count MPV Immature Gran % (Auto) Neut % (Auto) Lymph % (Auto) [place] % (Auto) Eos % (Auto) Baso % (Auto) Lymph # (Auto) [place] # (Auto) Eos # (Auto) Baso # (Auto) Abs Immat Gran (auto) Absolute Neuts (auto) Absolute Nucleated RBC Nucleated RBC % Sodium Potassium Chloride Carbon Dioxide Anion Gap BUN Creatinine Estim Creat Clear Calc Estimated GFR Glucose POC Capillary Glucose 65 91 124 H Calcium Magnesium Total Bilirubin AST ALT Alkaline Phosphatase Total Protein Albumin 02/15/24 02/16/24 19:57 04:58 WBC 7.8 RBC 3.28 L Hgb 9.4 L Hct 30.3 L MCV 92.4 MCH 28.7 MCHC 31.0 L RDW 12.9 Plt Count 299 MPV 11.2 H Immature Gran % (Auto) 0.4 Neut % (Auto) 61.7 Lymph % (Auto) 26.8 [place] % (Auto) 8.8 H Eos % (Auto) 1.9 Baso % (Auto) 0.4 Lymph # (Auto) 2.09 [place] # (Auto) 0.7 H Eos # (Auto) 0.2 Baso # (Auto) 0.0 Abs Immat Gran (auto) 0.03 Absolute Neuts (auto) 4.8 Absolute Nucleated RBC 0.000 Nucleated RBC % 0.0 Sodium 137 Potassium 3.5 Chloride 104 Carbon Dioxide 28 Anion Gap 5 BUN 10 Creatinine 0.60 L Estim Creat Clear Calc 110 Estimated GFR > 60 Glucose 109 POC Capillary Glucose 107 H Calcium 8.2 L Magnesium 1.9 Total Bilirubin 0.4 AST 21 ALT 19 Alkaline Phosphatase 72 Total Protein 6.0 L Albumin 3.5
[2024-02-16] MEDS: SODIUM CHLORIDE 0.9% IV 1,000 ML 80 ML IV CONT ×2 (08:24→22:21)
[2024-02-16] MEDS: hydrOXYzine HCL 25 MG TABLET FEED TUBE ×2 (08:25→16:18)
[2024-02-16] MEDS: levETIRAcetam 500 MG TABLET 1000 MG PO (08:25)
[2024-02-16] MEDS: FLUoxetine HCL 20 MG CAPSULE FEED TUBE (08:25)
[2024-02-16] MEDS: ATORVASTATIN 40 MG TABLET 80 MG FEED TUBE (08:25)
[2024-02-16] MEDS: ARIPiprazole 10 MG TABLET FEED TUBE (08:25)
[2024-02-16] MEDS: PANTOPRAZOLE SODIUM IV 40 MG VIAL IV PUSH ×2 (08:32→20:13)
[2024-02-16] MEDS: polyethylene glycoL 3350 17 GM POWD.PACK PO (08:32)
--- NOTE | 2024-02-16 10:46 | PC.NURSE ---
Attempted to reach Swapna Tejeda, family, regarding consent needed.
--- NOTE | 2024-02-16 12:27 | PM.IMPN ---
Progress Note: A&P Assessment and Plan (1) Coffee ground emesis: Code(s): K92.0 - Hematemesis Status: Acute (2) Leukocytosis: Code(s): D72.829 - Elevated white blood cell count, unspecified Status: Acute (3) Thrombocytosis: Code(s): D75.839 - Thrombocytosis, unspecified Status: Acute (4) Fecal impaction: Code(s): K56.41 - Fecal impaction Status: Acute (5) Mass of urinary bladder: Code(s): N32.89 - Other specified disorders of bladder Status: Acute Plan Coffee Ground Emesis likely from Esophagitis EGD showed reflux esophagitis -hemoglobin 13.5, hb 9.4 today -Iron panel pending -No vomiting since admission COntinue PPI Monitor H and H -GI following Leukocytosis, resolved -WBC 25.2, WBC 9.1 -possible aspiration pneumonia -chest x-ray negative for PNA -urinalysis no significant findings - Continue Zosyn -if no source of infection is found will deescalate the antibiotic in a day or 2 - maybe from dehydration Fecal impaction -Dulcolax suppository -Sigmoidoscopy showed impacted stool in the rectum with manual evacuation continue daily Miralax appreciate GI input Bladder mass -CT scan shows 1.1 cm mass at the posterior right side of the urinary bladder.. -urology following, planning for cystoscopy today DVT prophylaxis SCD Pharmacological prophylaxis after the EGD GI prophylaxis Protonix 40 b.i.d. Subjective Date/time seen: 02/16/24 12:27 Interval history: Comfortable at bedside EGD and Sigmoidoscopy reviewed For Cystoscopy today Exam Narrative: GENERAL: chronically ill appearing, appears older than stated age but in no acute distress. Without evidence of furrowed brow or grimace. HEAD: Normocephalic, atraumatic. EYES: Non injected, non icteric ENT: Nares clear, no rhinorrhea or epistaxis. NECK: Supple. CHEST: No respiratory distress. HEART: Regular rate and rhythm. . ABDOMEN: Soft, nondistended. G tube in place with granulation tissue and scabs surrounding it but otherwise without cellulitis, erythema, or purulent discharge. Rectal: exam performed with STACY Cheatham present. There is soft stool at the rectum, no evidence of hematochezia or melena. FOBT negative x2 windows. EXTREMITIES: Normal range of motion. No lower extremity edema. Moves extremities x4 and able to turn himself to the side. SKIN: Warm, dry, no rash. NEURO: No focal deficits. Alert. Only replies Yes/No Objective Data Vital Signs Vital Signs: Vital Signs - 24 hr 02/15/24 13:00 02/15/24 19:51 02/15/24 20:18 Temperature 98.2 F 98.4 F Pulse Rate 75 94 Respiratory Rate 18 16 Blood Pressure 147/77 H 123/78 Pulse Oximetry 99 98 Oxygen Delivery Room Air 02/16/24 05:08 02/16/24 08:00 Temperature 98.0 F Pulse Rate 72 Respiratory Rate 14 Blood Pressure 137/78 Pulse Oximetry 98 Oxygen Delivery Room Air Intake/Output Intake/Output: Intake & Output 02/13/24 02/14/24 02/15/24 02/16/24 23:59 23:59 23:59 23:59 Intake Total 2200 2700 1100 Output Total 950 2100 Balance 2200 1750 -1000 Meds/Results Medications: Active Medications Generic Name Dose Route Start Last Admin Trade Name Freq PRN Reason Stop Dose Admin Acetaminophen 650 mg 02/14/24 08:06 Acetaminophen 325 Mg Tablet PO Q4H PRN Mild Pain (1-3) or Fever Aripiprazole 10 mg 02/15/24 09:00 02/16/24 08:25 Aripiprazole 10 Mg Tablet FEED TUBE 10 mg DAILY SHON Administration Atorvastatin Calcium 80 mg 02/15/24 09:00 02/16/24 08:25 Atorvastatin 40 Mg Tablet FEED TUBE 80 mg DAILY SHON Administration Fluoxetine HCl 20 mg 02/15/24 09:00 02/16/24 08:25 Fluoxetine Hcl 20 Mg Capsule FEED TUBE 20 mg DAILY SHON Administration Hydroxyzine HCl 25 mg 02/14/24 17:00 02/16/24 08:25 Hydroxyzine Hcl 25 Mg Tablet FEED TUBE 25 mg BID SHON Administration Piperacillin/Tazobactam/Dextrose 3.375 gm in 50 mls @ 100 mls/hr 02/14/24 12:35 02/16/24 11:51 Zosyn 3.375 Gm/Ns 50 Ml IVPB 100 mls/hr Q6HR SHON Administration Sodium Chloride 1,000 mls @ 80 mls/hr 02/14/24 14:05 02/16/24 08:24 Normal Saline Iv IV CONT 80 mls/hr .[id number] SHON Administration Levetiracetam 1,000 mg 02/15/24 09:00 02/16/24 08:25 Levetiracetam 500 Mg Tablet PO 1,000 mg DAILY SHON Administration Ondansetron HCl 4 mg 02/14/24 08:06 02/14/24 20:28 Ondansetron Inj 4 Mg/2 Ml Vial IV PUSH 4 mg Q4H PRN Administration Nausea Pantoprazole Sodium 40 mg 02/14/24 21:00 02/16/24 08:32 Pantoprazole Sodium Iv 40 Mg Vial IV PUSH 40 mg Q12HR SHON Administration Polyethylene Glycol 17 gm 02/16/24 09:00 02/16/24 08:32 Polyethylene Glycol 3350 17 Gm Powd.Pack PO 17 gm QAM SHON Administration Promethazine HCl 12.5 mg 02/14/24 12:11 Promethazine Hcl 12.5 Mg Tablet FEED TUBE BID PRN Nausea Trazodone HCl 50 mg 02/14/24 21:00 02/15/24 20:20 Trazodone Hcl 50 Mg Tablet FEED TUBE 50 mg HS SHON Administration Radiology Results: ITS Impressions Chest X-Ray 02/14/24 07:02 Impression: Clear lungs. Abdomen/Pelvis CT 02/14/24 07:43 Impression: Fecal impaction. Questionable 1.1 cm mass at the posterior right side of the urinary bladder. Consider cystoscopy for direct evaluation. Labs Labs: Laboratory Results - last 24 hr 02/15/24 02/16/24 19:57 04:58 WBC 7.8 RBC 3.28 L Hgb 9.4 L Hct 30.3 L MCV 92.4 MCH 28.7 MCHC 31.0 L RDW 12.9 Plt Count 299 MPV 11.2 H Immature Gran % (Auto) 0.4 Neut % (Auto) 61.7 Lymph % (Auto) 26.8 [place] % (Auto) 8.8 H Eos % (Auto) 1.9 Baso % (Auto) 0.4 Lymph # (Auto) 2.09 [place] # (Auto) 0.7 H Eos # (Auto) 0.2 Baso # (Auto) 0.0 Abs Immat Gran (auto) 0.03 Absolute Neuts (auto) 4.8 Absolute Nucleated RBC 0.000 Nucleated RBC % 0.0 Sodium 137 Potassium 3.5 Chloride 104 Carbon Dioxide 28 Anion Gap 5 BUN 10 Creatinine 0.60 L Estim Creat Clear Calc 110 Estimated GFR > 60 Glucose 109 POC Capillary Glucose 107 H Calcium 8.2 L Magnesium 1.9 Total Bilirubin 0.4 AST 21 ALT 19 Alkaline Phosphatase 72 Total Protein 6.0 L Albumin 3.5
[2024-02-16 14:00] VITALS: BP 109/70; PULSE 79; RESP 18; TEMP 37; O2SAT 97
--- NOTE | 2024-02-16 17:31 | P.PNGI_ITS ---
Progress Note: A&P Assessment and Plan (1) Erosive esophagitis: Code(s): K22.10 - Ulcer of esophagus without bleeding Status: Acute Assessment and Plan: this was cause of coffee ground emesis continue with protonix twice daily, will favor medical terminologist given clinical condition consider to repeat egd in 4-5 months to assess healing will follow as needed (2) Coffee ground emesis: Code(s): K92.0 - Hematemesis Status: Acute Assessment and Plan: resolved tolerating tube feeding (3) Fecal impaction: Code(s): K56.41 - Fecal impaction Status: Acute Assessment and Plan: treated yesterday dulcolax, miralax, fiber in diet (4) 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 tolerating tube feeding, no changes. Review of Systems Review of Systems: All systems reviewed & are unremarkable except as noted in HPI and below Exam Const: General: comfortable Other: chronically ill appearing HENMT: Face/Nose/Sinus: Normal nares present Eyes: General: appearance normal, both eyes and all related structures Neck: Neck: supple Resp: Effort & Inspection: normal respiratory effort Cardio: Rate: regular rate GI: GI Palp: Yes Soft to palpation and No Tenderness to palpation present (GI) Auscultation: normal bowel sounds Other: G-tube in place Skin: General skin exam: normal color Neuro: Other: only will say yes or no, he has rt sided hemiparesis and aphasia Extrem: General: normal to inspection Psych: Other: unable to assess Objective Data Vital Signs Vital Signs: Vital Signs - 24 hr 02/15/24 19:51 02/15/24 20:18 02/16/24 05:08 Temperature 98.4 F 98.0 F Pulse Rate 94 72 Respiratory Rate 16 14 Blood Pressure 123/78 137/78 Pulse Oximetry 98 98 Oxygen Delivery Room Air 02/16/24 08:00 02/16/24 14:00 Temperature 98.6 F Pulse Rate 79 Respiratory Rate 18 Blood Pressure 109/70 Pulse Oximetry 97 Oxygen Delivery Room Air Intake/Output Intake/Output: Intake & Output 02/13/24 02/14/24 02/15/24 02/16/24 23:59 23:59 23:59 23:59 Intake Total 2200 2700 1150 Output Total 950 2100 Balance 2200 1750 -950 Meds/Results Medications: Active Medications Generic Name Dose Route Start Last Admin Trade Name Freq PRN Reason Stop Dose Admin Acetaminophen 650 mg 02/14/24 08:06 Acetaminophen 325 Mg Tablet PO Q4H PRN Mild Pain (1-3) or Fever Aripiprazole 10 mg 02/15/24 09:00 02/16/24 08:25 Aripiprazole 10 Mg Tablet FEED TUBE 10 mg DAILY SHON Administration Atorvastatin Calcium 80 mg 02/15/24 09:00 02/16/24 08:25 Atorvastatin 40 Mg Tablet FEED TUBE 80 mg DAILY SHON Administration Fluoxetine HCl 20 mg 02/15/24 09:00 02/16/24 08:25 Fluoxetine Hcl 20 Mg Capsule FEED TUBE 20 mg DAILY SHON Administration Hydroxyzine HCl 25 mg 02/14/24 17:00 02/16/24 16:18 Hydroxyzine Hcl 25 Mg Tablet FEED TUBE 25 mg BID SHON Administration Piperacillin/Tazobactam/Dextrose 3.375 gm in 50 mls @ 100 mls/hr 02/14/24 12:35 02/16/24 17:05 Zosyn 3.375 Gm/Ns 50 Ml IVPB 100 mls/hr Q6HR SHON Administration Sodium Chloride 1,000 mls @ 80 mls/hr 02/14/24 14:05 02/16/24 17:06 Normal Saline Iv IV CONT Not Given .[id number] SHON Levetiracetam 1,000 mg 02/15/24 09:00 02/16/24 08:25 Levetiracetam 500 Mg Tablet PO 1,000 mg DAILY SHON Administration Ondansetron HCl 4 mg 02/14/24 08:06 02/14/24 20:28 Ondansetron Inj 4 Mg/2 Ml Vial IV PUSH 4 mg Q4H PRN Administration Nausea Pantoprazole Sodium 40 mg 02/14/24 21:00 02/16/24 08:32 Pantoprazole Sodium Iv 40 Mg Vial IV PUSH 40 mg Q12HR SHON Administration Polyethylene Glycol 17 gm 02/16/24 09:00 02/16/24 08:32 Polyethylene Glycol 3350 17 Gm Powd.Pack PO 17 gm QAM SHON Administration Promethazine HCl 12.5 mg 02/14/24 12:11 Promethazine Hcl 12.5 Mg Tablet FEED TUBE BID PRN Nausea Trazodone HCl 50 mg 02/14/24 21:00 02/15/24 20:20 Trazodone Hcl 50 Mg Tablet FEED TUBE 50 mg HS SHON Administration Radiology Results: ITS Impressions Chest X-Ray 02/14/24 07:02 Impression: Clear lungs. Abdomen/Pelvis CT 02/14/24 07:43 Impression: Fecal impaction. Questionable 1.1 cm mass at the posterior right side of the urinary bladder. Consider cystoscopy for direct evaluation. Labs Labs: Laboratory Results - last 24 hr 02/15/24 02/16/24 19:57 04:58 WBC 7.8 RBC 3.28 L Hgb 9.4 L Hct 30.3 L MCV 92.4 MCH 28.7 MCHC 31.0 L RDW 12.9 Plt Count 299 MPV 11.2 H Immature Gran % (Auto) 0.4 Neut % (Auto) 61.7 Lymph % (Auto) 26.8 [place] % (Auto) 8.8 H Eos % (Auto) 1.9 Baso % (Auto) 0.4 Lymph # (Auto) 2.09 [place] # (Auto) 0.7 H Eos # (Auto) 0.2 Baso # (Auto) 0.0 Abs Immat Gran (auto) 0.03 Absolute Neuts (auto) 4.8 Absolute Nucleated RBC 0.000 Nucleated RBC % 0.0 Sodium 137 Potassium 3.5 Chloride 104 Carbon Dioxide 28 Anion Gap 5 BUN 10 Creatinine 0.60 L Estim Creat Clear Calc 110 Estimated GFR > 60 Glucose 109 POC Capillary Glucose 107 H Calcium 8.2 L Magnesium 1.9 Total Bilirubin 0.4 AST 21 ALT 19 Alkaline Phosphatase 72 Total Protein 6.0 L Albumin 3.5
--- NOTE | 2024-02-16 17:37 | P.PNAN_ITS ---
Anes - Prog Note Post-Op Date/Time: 02/16/24 17:37 Cardiovascular status: other (anemia) Respiratory status: normal Airway patency: baseline Mental status: baseline Post-Op hydration status: normal Vital Signs: Last Vital Signs Temp 98.6 F 02/16/24 14:00 Pulse 79 02/16/24 14:00 Resp 18 02/16/24 14:00 BP 109/70 02/16/24 14:00 Pulse Ox 97 02/16/24 14:00 O2 Del Method Room Air 02/16/24 08:00 Pain Score (VAS): 0/10 I/O: Intake & Output 02/16/24 02/16/24 02/16/24 07:59 15:59 23:59 Intake Total 100 1050 Output Total 1600 500 Balance -1500 550 Laboratory Tests 02/16/24 04:58 02/16/24 04:58 02/15/24 02/16/24 19:57 04:58 WBC 7.8 RBC 3.28 L Hgb 9.4 L Hct 30.3 L MCV 92.4 MCH 28.7 MCHC 31.0 L RDW 12.9 Plt Count 299 MPV 11.2 H Immature Gran % (Auto) 0.4 Neut % (Auto) 61.7 Lymph % (Auto) 26.8 [place] % (Auto) 8.8 H Eos % (Auto) 1.9 Baso % (Auto) 0.4 Lymph # (Auto) 2.09 [place] # (Auto) 0.7 H Eos # (Auto) 0.2 Baso # (Auto) 0.0 Abs Immat Gran (auto) 0.03 Absolute Neuts (auto) 4.8 Absolute Nucleated RBC 0.000 Nucleated RBC % 0.0 Sodium 137 Potassium 3.5 Chloride 104 Carbon Dioxide 28 Anion Gap 5 BUN 10 Creatinine 0.60 L Estim Creat Clear Calc 110 Estimated GFR > 60 Glucose 109 POC Capillary Glucose 107 H Calcium 8.2 L Magnesium 1.9 Iron Pending TIBC Pending % Saturation Pending Ferritin Pending Total Bilirubin 0.4 AST 21 ALT 19 Alkaline Phosphatase 72 Total Protein 6.0 L Albumin 3.5 Post-procedural complaints: none Patient Feedback: Patient satisfied with anesthetic care.
[2024-02-16 17:57] LABS: Iron 46 ug/dL (49-181)
[2024-02-16 18:06] LABS: Percent Iron Saturation 17 % (20-50)
[2024-02-16 20:10] VITALS: PULSE 79; RESP 18; O2SAT 97
[2024-02-16] MEDS: traZODone HCL 50 MG TABLET FEED TUBE (20:13)
[2024-02-16 23:00] VITALS: BP 135/73; PULSE 68; RESP 16; TEMP 36.4; O2SAT 96
[2024-02-17] VITALS (11 sets, daily range): BP systolic 132–176; BP diastolic 70–96; PULSE 58–85; RESP 14–18; TEMP 35.8–37.2; O2SAT 96–100
[2024-02-17] MEDS: PIPERACILLN/TAZ 3.375GM/NS50ML 3.375 GM/50 ML BAG IVPB ×3 (00:35→11:01)
[2024-02-17 04:29] LABS: Basophils Percent Auto 0.4 % (0.2-1.2); Eosinophils Absolute Auto 0.2 K/mm3 (0-0.3); Eosinophils Percent Auto 2.9 % (0-4.4); Hematocrit 31.6 % (42.0-52.0); Hemoglobin 10.2 g/dL (14.0-18.0); Immature Granulocyte Absolute 0.02 K/mm3 (0.00-0.031); Immature Granulocyte Percent A 0.3 % (0-0.5); Lymphocytes Absolute Auto 2.14 K/mm3 (0.9-3.2); Lymphocytes Percent Auto 30.1 % (18.3-44.2); Mean Corpuscular HGB Conc 32.3 g/dl (32-36); Mean Corpuscular Hemoglobin 29.3 pg (26-34); Mean Corpuscular Volume 90.8 fl (80-100); Mean Platelet Volume 10.3 fl (7.4-10.4); Monocytes Absolute Auto 0.7 K/mm3 (0.1-0.6); Monocytes Percent Auto 9.3 % (2.6-8.5); Neutrophils Absolute Auto 4.1 K/mm3 (1.3-6.7); Platelet Count Result 306 k/mm3 (150-375); Red Blood Count 3.48 M/mm3 (4.6-6.20); White Blood Count 7.1 K/mm3 (4.5-10.0)
[2024-02-17 04:40] LABS: Alanine Aminotransferase 18 U/L (6-50); Albumin Level 3.5 g/dL (3.5-5.1); Alkaline Phosphatase 79 U/L (38-126); Anion Gap 6 mmol/L (4-12); Aspartate Amino Transferase 24 U/L (17-59); Bilirubin,Total 0.4 mg/dL (0.2-1.3); Blood Urea Nitrogen 8 mg/dL (9-20); Calcium 8.7 mg/dL (8.4-10.2); Carbon Dioxide 29 mmol/L (22-30); Chloride 104 mmol/L (98-107); Estimated CRCL calculation 110 ml/min; Estimated Glomerular Filt Rate > 60; Glucose 87 mg/dL (65-110); Magnesium 1.9 mg/dL (1.6-2.3); Potassium 4.2 mmol/L (3.4-5.0); Sodium 139 mmol/L (137-145)
--- NOTE | 2024-02-17 05:56 | WPDHPUPDATE1 ---
History and Physical Update Update Date/Time: 02/17/24 05:56 History and Physical has been reviewed, including an updated exam of the patient. There are NO changes in the patient's condition. Risks, benefits, and alternatives have been discussed and questions answered. Patient agrees to proceed with procedure.
[2024-02-17] MEDS: FLUoxetine HCL 20 MG CAPSULE FEED TUBE (08:12)
[2024-02-17] MEDS: levETIRAcetam 500 MG TABLET 1000 MG PO (08:12)
[2024-02-17] MEDS: PANTOPRAZOLE SODIUM IV 40 MG VIAL IV PUSH ×2 (08:13→20:16)
[2024-02-17] MEDS: SODIUM CHLORIDE 0.9% IV 1,000 ML 80 ML IV CONT (11:01)
--- NOTE | 2024-02-17 12:50 | PC.NURSE ---
To OR per stretcher.
--- NOTE | 2024-02-17 13:36 | WPDANESEPPF ---
Anes - Initial Pre Proc Eval Procedure: Operation Date: 02/15/24 15:30 Proposed Procedures p Esophagogastroduodenoscopy - Eamon Branch MD s Flexible Sigmoidoscopy - Eamon Branch MD Operation Date: 02/17/24 14:30 Proposed Procedures p Cystoscopy, with Trans Urethral Resection Bladder Tumor - Ed Amor MD Date/Time: 02/17/24 13:36 Surgeon: Zac Ochoa MD Pre Op Diagnosis: Coffee ground emesis Patient Data Age: 58 Gender: M Height: 1.83 m Weight: 68.9 kg Last Vital Signs Temp 97.7 F 02/17/24 05:53 Pulse 67 02/17/24 05:53 Resp 16 02/17/24 05:53 BP 132/80 02/17/24 05:53 Pulse Ox 96 02/17/24 05:53 O2 Del Method Room Air 02/17/24 08:00 Allergies Allergy/AdvReac Type Severity Reaction Status Date / Time No Known Allergies Allergy Verified 02/15/24 11:04 Home Medications Medication Instructions Recorded Confirmed Type polyethylene glycol 3350 17 gram 17 g feeding tube DAILY 4 days #14 12/21/23 02/14/24 Rx oral powder packet (Miralax) ea Adult One Daily Multivitamin 1 tablet feeding tube DAILY 02/14/24 02/14/24 History acetaminophen 325 mg capsule 650 mg feeding tube TID PRN Pain 02/14/24 02/14/24 History aluminum-mag hydroxide-simethicone 10 ml feeding tube DAILY PRN 02/14/24 02/14/24 History 200 mg-200 mg-20 mg/5 mL oral susp (Drug) Ingestion aripiprazole 10 mg tablet 10 mg feeding tube DAILY 02/14/24 02/14/24 History aspirin 81 mg chewable tablet 81 mg feeding tube DAILY 02/14/24 02/14/24 History atorvastatin 80 mg tablet 80 mg feeding tube DAILY 02/14/24 02/14/24 History clopidogrel 75 mg tablet 75 mg PO DAILY 02/14/24 02/14/24 History fluoxetine 20 mg tablet 20 mg feeding tube DAILY 02/14/24 02/14/24 History hydroxyzine HCl 25 mg tablet 25 mg feeding tube BID 02/14/24 02/14/24 History levetiracetam 1,000 mg tablet 1,000 mg PO DAILY 02/14/24 02/14/24 History promethazine 12.5 mg tablet 12.5 mg feeding tube BID PRN Nausea 02/14/24 02/14/24 History sennosides 8.6 mg capsule (senna) 8.6 mg feeding tube DAILY 02/14/24 02/14/24 History thiamine HCl (vitamin B1) 100 mg 100 mg feeding tube DAILY 02/14/24 02/14/24 History tablet trazodone 50 mg tablet 50 mg feeding tube HS 02/14/24 02/14/24 History Laboratory Tests 02/16/24 02/17/24 15:07 04:23 WBC 7.1 K/mm3 (4.5-10.0) RBC 3.48 L M/mm3 (4.6-6.20) Hgb 10.2 L g/dL (14.0-18.0) Hct 31.6 L % (42.0-52.0) MCV 90.8 fl (80-100) MCH 29.3 pg (26-34) MCHC 32.3 g/dl (32-36) RDW 13.0 % (11.5-14.5) Plt Count 306 k/mm3 (150-375) MPV 10.3 fl (7.4-10.4) Immature Gran % (Auto) 0.3 % (0-0.5) Neut % (Auto) 57.0 % (45.5-73.1) Lymph % (Auto) 30.1 % (18.3-44.2) [place] % (Auto) 9.3 H % (2.6-8.5) Eos % (Auto) 2.9 % (0-4.4) Baso % (Auto) 0.4 % (0.2-1.2) Lymph # (Auto) 2.14 K/mm3 (0.9-3.2) [place] # (Auto) 0.7 H K/mm3 (0.1-0.6) Eos # (Auto) 0.2 K/mm3 (0-0.3) Baso # (Auto) 0.0 K/mm3 (0.0-0.1) Abs Immat Gran (auto) 0.02 K/mm3 (0.00-0.031) Absolute Neuts (auto) 4.1 K/mm3 (1.3-6.7) Absolute Nucleated RBC 0.000 K/mm3 (0.0-0.012) Nucleated RBC % 0.0 % (0.0-0.2) Sodium 139 mmol/L (137-145) Potassium 4.2 mmol/L (3.4-5.0) Chloride 104 mmol/L (98-107) Carbon Dioxide 29 mmol/L (22-30) Anion Gap 6 mmol/L (4-12) BUN 8 L mg/dL (9-20) Creatinine 0.60 L mg/dL (0.7-1.3) Estim Creat Clear Calc 110 ml/min Estimated GFR > 60 (59 - ) Glucose 87 mg/dL (65-110) Calcium 8.7 mg/dL (8.4-10.2) Magnesium 1.9 mg/dL (1.6-2.3) Iron 46 L ug/dL (49-181) TIBC 266 ug/dL (265-497) % Saturation 17 L % (20-50) Ferritin 20.10 ng/mL (11.1-264) Total Bilirubin 0.4 mg/dL (0.2-1.3) AST 24 U/L (17-59) ALT 18 U/L (6-50) Alkaline Phosphatase 79 U/L (38-126) Total Protein 6.0 L g/dL (6.3-8.2) Albumin 3.5 g/dL (3.5-5.1) Patient hx anesthesia problems: none Family hx anesthesia problems: none Results Review: All pre-operative results and documents have been reviewed as part of the pre-operative evaluation. 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) Cerebrovascular disease, unspecified 09/2023 right hemiparesis Erosive esophagitis Essential (primary) hypertension G tube feedings Generalized anxiety disorder Hyperlipidemia, unspecified Major depressive disorder, single episode, unspecified Other seizures Unspecified severe protein-calorie malnutrition Family History Family History Other Unknown family medical history Social History Social History Social History: Do Not Resuscitate (DNR) per [place] documentation Smoking status: Former smoker Alcohol intake: unknown Substance use: unknown Substance use type: unknown Do You Feel Safe in your Home?: Yes Lack of Transportation: No Lack of Food: Never True Current Housing: I Have Housing Concerned About Future Housing: No Difficulty Paying Gas/Electric Bills: No Difficulty Paying for Meds: No Currently Unemployed: No Education: Don't Know Difficulty w/ Childcare or Family Care: No Additional living arrangements comments: [facility] Occupation/Education: retired 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 ) Neurological: confused and dysarthria Last oral intake: >/= 8 hours ASA classification: III Emergent: no Anesthetic plan: proceed Anesthesia type and monitoring: general LMA and standard monitoring Results Review: All pre-operative results and documents have been reviewed as part of the pre-operative evaluation. Hx of CVA 2023 and mostly nonverbal since, only answering yes to questions. Daughter signed consent as POA. Informed Consent: The patient's anesthetic plan and its attendant risks and benefits were discussed with the patient/family/POA. Questions were solicited and answers provided to the satisfaction of the patient/family/POA.
[2024-02-17] MEDS: LIDOCAINE HCL 2% GEL UROJET 10 ML PKG MUCOUS MEM (14:18)
--- NOTE | 2024-02-17 14:33 | W.PM.PROC2 ---
Procedure Note - Detailed Date of Procedure 02/17/24 Pre-op Diagnosis Coffee ground emesis, possible bladder mass Post-op Diagnosis Other (Normal bladder) Procedure Performed Flexible cystoscopy Surgeon Ed Amor MD Anesthesia MAC Description of Procedure Patient is brought to the operative suite where he has prepped draped in routine sterile fashion while in dorsal lithotomy position. 2% xylocaine jelly was introduced intraurethrally and systemic sedation is administered per the anesthesia department. Cystoscopy was undertaken with a 16 F flexible cystoscope. He has no urethral strictures. 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 Bladder mucosa is normal. There was no intravesical foreign body neoplasm. He has a single orthotopic ureteral orifice bilaterally. Cystoscope was removed. I did place of 16 F urethral catheter to drainage. The patient tolerated the procedure well. Urine Output 600 Drains No Pathology None sent Complications No immediate complications
[2024-02-17] MEDS: LACTATED RINGERS 1,000 ML 30 ML IV CONT (14:35)
--- NOTE | 2024-02-17 15:30 | PC.NURSE ---
From OR per stretcher. No complaints voiced. TF restarted.
[2024-02-17] MEDS: ATORVASTATIN 40 MG TABLET 80 MG FEED TUBE (15:50)
[2024-02-17] MEDS: hydrOXYzine HCL 25 MG TABLET FEED TUBE (15:50)
[2024-02-17] MEDS: ARIPiprazole 10 MG TABLET FEED TUBE (15:50)
[2024-02-17] MEDS: AMOXICILLIN/CLAVULANATE K 875-125 MG TAB 1 TABLET PO (15:54)
[2024-02-17] MEDS: traZODone HCL 50 MG TABLET FEED TUBE (20:16)
[2024-02-18] MEDS: SODIUM CHLORIDE 0.9% IV 1,000 ML 80 ML IV CONT (00:21)
[2024-02-18 00:49] VITALS: BP 132/64; PULSE 64; RESP 16; TEMP 36.4; O2SAT 97
[2024-02-18 05:47] VITALS: BP 108/65; PULSE 71; RESP 16; TEMP 36.5; O2SAT 98
[2024-02-18] MEDS: levETIRAcetam 500 MG TABLET 1000 MG PO (09:08)
[2024-02-18] MEDS: PANTOPRAZOLE SODIUM IV 40 MG VIAL IV PUSH (09:08)
[2024-02-18] MEDS: ATORVASTATIN 40 MG TABLET 80 MG FEED TUBE (09:08)
[2024-02-18] MEDS: polyethylene glycoL 3350 17 GM POWD.PACK PO (09:08)
[2024-02-18] MEDS: AMOXICILLIN/CLAVULANATE K 875-125 MG TAB 1 TABLET PO (09:08)
[2024-02-18] MEDS: hydrOXYzine HCL 25 MG TABLET FEED TUBE (09:08)
[2024-02-18] MEDS: FLUoxetine HCL 20 MG CAPSULE FEED TUBE (09:08)
[2024-02-18] MEDS: ARIPiprazole 10 MG TABLET FEED TUBE (09:08)
--- NOTE | 2024-02-18 09:36 | P.PNUR_ITS ---
Progress Note: A&P Assessment and Plan (1) Abnormal CT scan, bladder: Code(s): R93.41 - Abnormal radiologic findings on diagnostic imaging of renal pelvis, ureter, or bladder Status: Acute Assessment and Plan: * Cystoscopy yesterday was normal. I reviewed the normal findings with patient today * Patient has a neurogenic bladder and is likely facing long-term incontinence. It is patient/ family discretion whether he manages this with an indwelling catheter with monthly changes vs. continence pads * No need for f/u with us Subjective Subjective Date/Time Seen: 02/18/24 09:36 Interval history: Seems comfortable, tolerating indwelling Coleman catheter Review of Systems Review of Systems: ROS unobtainable: Yes unobtainable due to medical condition Exam Const: General: no acute distress Resp: Effort & Inspection: normal respiratory effort GI: Inspection: non-distended GI Palp: No abdominal tenderness and No Guarding due to palpation present (GI) Auscultation: normal bowel sounds Urinary Catheter: Urinary Catheter: patent and draining and urine clear Objective Data Vital Signs Vital Signs: Vital Signs - 24 hr 02/17/24 14:35 02/17/24 14:50 02/17/24 15:05 Temperature 99.0 F Pulse Rate 58 L 68 72 Respiratory Rate 14 18 16 Blood Pressure 142/84 H 151/78 H 160/96 H Pulse Oximetry 100 100 100 Oxygen Delivery Simple Face Mask Simple Face Mask Room Air Oxygen Flow Rate 8 8 02/17/24 15:19 02/17/24 15:30 02/17/24 15:45 Temperature 96.6 F L 97 F L Pulse Rate 72 71 74 Respiratory Rate 16 18 17 Blood Pressure 164/79 H 176/73 H 156/76 H Pulse Oximetry 98 98 99 Oxygen Delivery Room Air Oxygen Flow Rate 02/17/24 16:15 02/17/24 17:15 02/17/24 21:57 Temperature 96.8 F L 96.5 F L 97.9 F Pulse Rate 73 85 79 Respiratory Rate 17 17 16 Blood Pressure 155/71 H 146/70 H 133/75 Pulse Oximetry 97 98 98 Oxygen Delivery Oxygen Flow Rate 02/17/24 20:10 02/18/24 00:49 02/18/24 05:47 Temperature 97.5 F L 97.7 F Pulse Rate 79 64 71 Respiratory Rate 16 16 16 Blood Pressure 132/64 108/65 Pulse Oximetry 98 97 98 Oxygen Delivery Room Air Oxygen Flow Rate Intake/Output Intake/Output: Intake & Output 02/15/24 02/16/24 02/17/24 02/18/24 23:59 23:59 23:59 23:59 Intake Total 2700 2200 1150 1000 Output Total 950 3000 2250 1200 Balance 1750 -800 -1100 -200 Meds/Results Medications: Active Medications Generic Name Dose Route Start Last Admin Trade Name Freq PRN Reason Stop Dose Admin Acetaminophen 650 mg 02/14/24 08:06 Acetaminophen 325 Mg Tablet PO Q4H PRN Mild Pain (1-3) or Fever Amoxicillin/Clavulanate Potassium 1 tablet 02/17/24 19:00 02/18/24 09:08 Amoxicillin/Clavulanate K 875-125 Mg Tab PO 02/20/24 21:01 1 tablet Q12HR SHON Administration Aripiprazole 10 mg 02/15/24 09:00 02/18/24 09:08 Aripiprazole 10 Mg Tablet FEED TUBE 10 mg DAILY SHON Administration Atorvastatin Calcium 80 mg 02/15/24 09:00 02/18/24 09:08 Atorvastatin 40 Mg Tablet FEED TUBE 80 mg DAILY HSON Administration Fluoxetine HCl 20 mg 02/15/24 09:00 02/18/24 09:08 Fluoxetine Hcl 20 Mg Capsule FEED TUBE 20 mg DAILY SHON Administration Hydroxyzine HCl 25 mg 02/14/24 17:00 02/18/24 09:08 Hydroxyzine Hcl 25 Mg Tablet FEED TUBE 25 mg BID SHON Administration Sodium Chloride 1,000 mls @ 80 mls/hr 02/14/24 14:05 02/18/24 00:21 Normal Saline Iv IV CONT 80 mls/hr .[id number] SHON Administration Levetiracetam 1,000 mg 02/15/24 09:00 02/18/24 09:08 Levetiracetam 500 Mg Tablet PO 1,000 mg DAILY SHON Administration Ondansetron HCl 4 mg 02/14/24 08:06 02/14/24 20:28 Ondansetron Inj 4 Mg/2 Ml Vial IV PUSH 4 mg Q4H PRN Administration Nausea Pantoprazole Sodium 40 mg 02/14/24 21:00 02/18/24 09:08 Pantoprazole Sodium Iv 40 Mg Vial IV PUSH 40 mg Q12HR SHON Administration Polyethylene Glycol 17 gm 02/16/24 09:00 02/18/24 09:08 Polyethylene Glycol 3350 17 Gm Powd.Pack PO 17 gm QAM SHON Administration Promethazine HCl 12.5 mg 02/14/24 12:11 Promethazine Hcl 12.5 Mg Tablet FEED TUBE BID PRN Nausea Trazodone HCl 50 mg 02/14/24 21:00 02/17/24 20:16 Trazodone Hcl 50 Mg Tablet FEED TUBE 50 mg HS SHON Administration Radiology Results: ITS Impressions Chest X-Ray 02/14/24 07:02 Impression: Clear lungs. Abdomen/Pelvis CT 02/14/24 07:43 Impression: Fecal impaction. Questionable 1.1 cm mass at the posterior right side of the urinary bladder. Consider cystoscopy for direct evaluation.
[2024-02-18 10:00] VITALS: BP 114/63; PULSE 76; RESP 20; TEMP 36.2; O2SAT 98
--- NOTE | 2024-02-18 10:52 | PM.DS ---
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 Is reported that at baseline he can only say yes and no. EMS administered 4 mg IV push Zofran. Patient was covered in dark vomit as well as feces upon arrival. He has a G-tube in place. he cannot meaningfully engage in history conversation. Upon evaluation, the patient answered yes or no. The patient is not able to give any reliable information. I called his daughter, , who reported that the patient suffered a stroke in September 2023 with right-sided hemiparesis and [facility] Before the stroke, the patient used to live with his daughter, but after the CVA, the patient lived in a correction. The patient has a G-tube as well. The patient's daughter reports most of the vomiting happens due to feeding while his bed is flat. Other than the past medical history of stroke, she was not able to recollect any history. She will see his father tomorrow at the hospital. As per the ED physician, the patient was brought due to coffee-ground emesis and feces. CT shows a tremendous amount of stool in the rectum, compatible with fecal impaction. We will do a suppository, and if it does not relieve the fecal impaction, we recommend fiberoptic disimpaction by GI. GI evaluated the patient and possible endoscopy tomorrow. Also, the CT scan shows a questionable 1.1 cm mass at the right posterior side of the urinary bladder. Urology is consulted. The patient's WBC is 25.2 even though the reactive leukocytosis can be due to the PEG tube; with his elevated WBC, possible aspiration PNA happened. The patient is started on Zosyn, and it will be deescalated if no source of infection is found. Urinalysis shows no significant findings.CXR is normal. Off note:repeat hemoglobin at 5:00 p.m. shows 11.5. Will repeat hemoglobin at 11pm. If any significant drop will transfuse Patient underwent EGD which showed reflux esophagitis and patietn was started on Protonix. Sigmoidoscopy manual disempaction was done for fecal impaction. Patient now on daily Miralax. Hb downtrended to 10.2 from 13.5, and Isat 17 with Ferritin 20. patient discharged on iron Sulfate x 90 days and will follow up with PCP. Urology was consulted and patient underwent Cystoscopy for possible bladder mass, howver no mass was seen on cystoscopy. Completed 5 days of Abx for leukocytosis which has resolved Patient was discharged back to [facility] today. F/u with PCP in 3-5 days, F/u with urology and GI as instructed. Progress Note: A&P Assessment and Plan (1) Coffee ground emesis: Code(s): K92.0 - Hematemesis Status: Acute (2) Leukocytosis: Code(s): D72.829 - Elevated white blood cell count, unspecified Status: Acute (3) Thrombocytosis: Code(s): D75.839 - Thrombocytosis, unspecified Status: Acute (4) Fecal impaction: Code(s): K56.41 - Fecal impaction Status: Acute (5) Mass of urinary bladder: Code(s): N32.89 - Other specified disorders of bladder Status: Acute Plan Coffee Ground Emesis likely from Esophagitis EGD showed reflux esophagitis -hemoglobin 13.5, hb 10.2 today -Isat 17 with ferritin 20 Continue Protonix bid 40mg f/u with GI Discharged on 90 days of ferrous sulfate Iron deficiency anemia Hb 10.2 from 13.5 Isat 17 and ferritin 20 on ferrous sulfate f/u with PCP Leukocytosis, resolved -WBC 25.2, WBC 9.1 -possible aspiration pneumonia -chest x-ray negative for PNA -urinalysis no significant findings - Continue Zosyn -if no source of infection is found will deescalate the antibiotic in a day or 2 - maybe from dehydration Fecal impaction -Dulcolax suppository -Sigmoidoscopy showed impacted stool in the rectum with manual evacuation continue daily Miralax appreciate GI input Bladder mass -CT scan shows 1.1 cm mass at the posterior right side of the urinary bladder.. -urology following, planning for cystoscopy today Time Spent with Patient Time attestation: Total time spent providing and/or coordinating discharge services: DS: Data Data Completed and Pending Completed studies during hospitalization: Pending at discharge 02/15/24 12:01 Surgical [PTH] Routine Discharge Plan Discharge Attending physician on discharge: Jossue Dorantes Consulting providers: Eamon Branch; Ankur Pollack Discharging Clinician: Jossue Dorantes Anticipated Discharge Date/Time: 02/18/24 10:41 Patient Disposition: NH Longterm/Asst Living Activity: as tolerated Diet: as tolerated Patient Instructions: Antibiotic Form Stand Alone Forms: General Discharge Information Follow-up/Referrals: Ankur Pollack MD [Physician] - (F/u with urology as instructed ) Agustin Dubois MD [Physician] - (F/u with PCP in 3-5 days ) Eamon Branch MD [Physician] - (F/u with Gastroenterology as instructed ) Discharge Medications: New polyethylene glycol 3350 [Miralax] 17 gram Powder In Packet 17 g PO QAM 14 Days Qty: 14 0RF pantoprazole [Protonix] 40 mg tablet,delayed release (DR/EC) 40 mg PO BID Qty: 60 1RF ferrous sulfate 324 mg (65 mg iron) tablet,delayed release (DR/EC) 324 mg PO DAILY Qty: 30 2RF Continued polyethylene glycol 3350 [Miralax] 17 gram powder in packet 17 g feeding tube DAILY 4 Days Qty: 14 0RF acetaminophen [Tylenol] 325 mg Capsule 650 mg feeding tube TID PRN (Reason: Pain) atorvastatin 80 mg tablet 80 mg feeding tube DAILY clopidogrel 75 mg tablet 75 mg PO DAILY fluoxetine 20 mg tablet 20 mg feeding tube DAILY aspirin [Adult Aspirin] 81 mg Tablet,Chewable 81 mg feeding tube DAILY aripiprazole 10 mg tablet 10 mg feeding tube DAILY levetiracetam 1,000 mg tablet 1,000 mg PO DAILY Rx Instructions: g tube Adult One Daily Multivitamin 1 tablet feeding tube DAILY trazodone 50 mg Tablet 50 mg feeding tube HS promethazine 12.5 mg Tablet 12.5 mg feeding tube BID PRN (Reason: Nausea) thiamine HCl (vitamin B1) 100 mg Tablet 100 mg feeding tube DAILY hydroxyzine HCl 25 mg Tablet 25 mg feeding tube BID alum-mag hydroxide-simeth [Mylanta] 200-200-20 mg/5 mL Suspension 10 ml feeding tube DAILY PRN (Reason: (Drug) Ingestion) senna 8.6 mg Capsule 8.6 mg feeding tube DAILY Date of admission: 02/14/24 08:06 Primary Care Provider: UNKNOWN,DOCTOR Admitting Provider: Zac Ochoa Attending physician on admission: Zac Ochoa Condition: Stable
--- NOTE | 2024-02-18 10:53 | P.PNIM_ITS ---
Progress Note: A&P Assessment and Plan (1) Coffee ground emesis: Code(s): K92.0 - Hematemesis Status: Acute (2) Leukocytosis: Code(s): D72.829 - Elevated white blood cell count, unspecified Status: Acute (3) Thrombocytosis: Code(s): D75.839 - Thrombocytosis, unspecified Status: Acute (4) Fecal impaction: Code(s): K56.41 - Fecal impaction Status: Acute (5) Mass of urinary bladder: Code(s): N32.89 - Other specified disorders of bladder Status: Acute Plan Coffee Ground Emesis likely from Esophagitis EGD showed reflux esophagitis -hemoglobin 13.5, hb 10.2 today -Iron panel pending -No vomiting since admission COntinue PPI Monitor H and H -GI following Leukocytosis, resolved -WBC 25.2, WBC 9.1 -possible aspiration pneumonia -chest x-ray negative for PNA -urinalysis no significant findings - Continue Zosyn -if no source of infection is found will deescalate the antibiotic in a day or 2 - maybe from dehydration Fecal impaction -Dulcolax suppository -Sigmoidoscopy showed impacted stool in the rectum with manual evacuation continue daily Miralax appreciate GI input Bladder mass -CT scan shows 1.1 cm mass at the posterior right side of the urinary bladder.. -urology following, planning for cystoscopy today DVT prophylaxis SCD Pharmacological prophylaxis after the EGD GI prophylaxis Protonix 40 b.i.d. Subjective Date/time seen: 02/17/24 10:53 date of service is 02/17/24 Interval history: For Cystoscopy today comfortable at bedside Exam Narrative: GENERAL: chronically ill appearing, appears older than stated age but in no acu te distress. Without evidence of furrowed brow or grimace. HEAD: Normocephalic, atraumatic. EYES: Non injected, non icteric ENT: Nares clear, no rhinorrhea or epistaxis. NECK: Supple. CHEST: No respiratory distress. HEART: Regular rate and rhythm. . ABDOMEN: Soft, nondistended. G tube in place with granulation tissue and scabs surrounding it but otherwise without cellulitis, erythema, or purulent discharge. Rectal: exam performed with STACY Cheatham present. There is soft stool at the rectum, no evidence of hematochezia or melena. FOBT negative x2 windows. EXTREMITIES: Normal range of motion. No lower extremity edema. Moves extremities x4 and able to turn himself to the side. SKIN: Warm, dry, no rash. NEURO: No focal deficits. Alert. Only replies Yes/No Objective Data Vital Signs Vital Signs: Vital Signs - 24 hr 02/17/24 14:35 02/17/24 14:50 02/17/24 15:05 Temperature 99.0 F Pulse Rate 58 L 68 72 Respiratory Rate 14 18 16 Blood Pressure 142/84 H 151/78 H 160/96 H Pulse Oximetry 100 100 100 Oxygen Delivery Simple Face Mask Simple Face Mask Room Air Oxygen Flow Rate 8 8 02/17/24 15:19 02/17/24 15:30 02/17/24 15:45 Temperature 96.6 F L 97 F L Pulse Rate 72 71 74 Respiratory Rate 16 18 17 Blood Pressure 164/79 H 176/73 H 156/76 H Pulse Oximetry 98 98 99 Oxygen Delivery Room Air Oxygen Flow Rate 02/17/24 16:15 02/17/24 17:15 02/17/24 21:57 Temperature 96.8 F L 96.5 F L 97.9 F Pulse Rate 73 85 79 Respiratory Rate 17 17 16 Blood Pressure 155/71 H 146/70 H 133/75 Pulse Oximetry 97 98 98 Oxygen Delivery Oxygen Flow Rate 02/17/24 20:10 02/18/24 00:49 02/18/24 05:47 Temperature 97.5 F L 97.7 F Pulse Rate 79 64 71 Respiratory Rate 16 16 16 Blood Pressure 132/64 108/65 Pulse Oximetry 98 97 98 Oxygen Delivery Room Air Oxygen Flow Rate Intake/Output Intake/Output: Intake & Output 02/15/24 02/16/24 02/17/24 02/18/24 23:59 23:59 23:59 23:59 Intake Total 2700 2200 1150 1000 Output Total 950 3000 2250 1200 Balance 1750 -800 -1100 -200 Meds/Results Medications: Active Medications Generic Name Dose Route Start Last Admin Trade Name Freq PRN Reason Stop Dose Admin Acetaminophen 650 mg 02/14/24 08:06 Acetaminophen 325 Mg Tablet PO Q4H PRN Mild Pain (1-3) or Fever Amoxicillin/Clavulanate Potassium 1 tablet 02/17/24 19:00 02/18/24 09:08 Amoxicillin/Clavulanate K 875-125 Mg Tab PO 02/20/24 21:01 1 tablet Q12HR SHON Administration Aripiprazole 10 mg 02/15/24 09:00 02/18/24 09:08 Aripiprazole 10 Mg Tablet FEED TUBE 10 mg DAILY SHON Administration Atorvastatin Calcium 80 mg 02/15/24 09:00 02/18/24 09:08 Atorvastatin 40 Mg Tablet FEED TUBE 80 mg DAILY SHON Administration Fluoxetine HCl 20 mg 02/15/24 09:00 02/18/24 09:08 Fluoxetine Hcl 20 Mg Capsule FEED TUBE 20 mg DAILY SHON Administration Hydroxyzine HCl 25 mg 02/14/24 17:00 02/18/24 09:08 Hydroxyzine Hcl 25 Mg Tablet FEED TUBE 25 mg BID SHON Administration Sodium Chloride 1,000 mls @ 80 mls/hr 02/14/24 14:05 02/18/24 00:21 Normal Saline Iv IV CONT 80 mls/hr .[id number] SHON Administration Levetiracetam 1,000 mg 02/15/24 09:00 02/18/24 09:08 Levetiracetam 500 Mg Tablet PO 1,000 mg DAILY SHON Administration Ondansetron HCl 4 mg 02/14/24 08:06 02/14/24 20:28 Ondansetron Inj 4 Mg/2 Ml Vial IV PUSH 4 mg Q4H PRN Administration Nausea Pantoprazole Sodium 40 mg 02/14/24 21:00 02/18/24 09:08 Pantoprazole Sodium Iv 40 Mg Vial IV PUSH 40 mg Q12HR SHON Administration Polyethylene Glycol 17 gm 02/16/24 09:00 02/18/24 09:08 Polyethylene Glycol 3350 17 Gm Powd.Pack PO 17 gm QAM SHON Administration Promethazine HCl 12.5 mg 02/14/24 12:11 Promethazine Hcl 12.5 Mg Tablet FEED TUBE BID PRN Nausea Trazodone HCl 50 mg 02/14/24 21:00 02/17/24 20:16 Trazodone Hcl 50 Mg Tablet FEED TUBE 50 mg HS SHON Administration Radiology Results: ITS Impressions Chest X-Ray 02/14/24 07:02 Impression: Clear lungs. Abdomen/Pelvis CT 02/14/24 07:43 Impression: Fecal impaction. Questionable 1.1 cm mass at the posterior right side of the urinary bladder. Co nsider cystoscopy for direct evaluation.
== END 2024-02-18 14:24 ==
LOC: ANHED 08:47 → ANH2MED 09:55
PROVIDERS: Internal Medicine Gastroenterology; Urology; Admitting Provider General Practice; Emergency Provider Student in an Organized Health Care Education/Training Program; Visit Provider Internal Medicine
PROC: 0DJ08ZZ Inspection of Upper Intestinal Tract, Via Natural or Artificial Opening Endoscopic (ICD-10-PCS; CPT 43235; principal; 2024-02-15 15:30)
PROC: 0DJD8ZZ Inspection of Lower Intestinal Tract, Via Natural or Artificial Opening Endoscopic (ICD-10-PCS; CPT 45330; 2024-02-15 15:30)
PROC: 0TBB8ZZ Excision of Bladder, Via Natural or Artificial Opening Endoscopic (ICD-10-PCS; CPT 52000; principal; 2024-02-17 14:30)
DX: K22.11 Ulcer of esophagus with bleeding (principal); K21.00 Gastro-esophageal reflux disease with esophagitis, without bleeding; K44.9 Diaphragmatic hernia without obstruction or gangrene; K29.50 Unspecified chronic gastritis without bleeding; K56.41 Fecal impaction; R93.41 Abnormal radiologic findings on diagnostic imaging of renal pelvis, ureter, or bladder; N31.9 Neuromuscular dysfunction of bladder, unspecified; N40.0 Benign prostatic hyperplasia without lower urinary tract symptoms; D50.9 Iron deficiency anemia, unspecified; I69.320 Aphasia following cerebral infarction; I69.351 Hemiplegia and hemiparesis following cerebral infarction affecting right dominant side; D72.829 Elevated white blood cell count, unspecified; D75.839 Thrombocytosis, unspecified; R06.82 Tachypnea, not elsewhere classified; R00.0 Tachycardia, unspecified; I10 Essential (primary) hypertension; F41.1 Generalized anxiety disorder; E78.5 Hyperlipidemia, unspecified; R56.9 Unspecified convulsions; E43 Unspecified severe protein-calorie malnutrition; Z68.20 Body mass index [BMI] 20.0-20.9, adult; Z93.1 Gastrostomy status; Z66 Do not resuscitate; Z87.891 Personal history of nicotine dependence; Z79.82 Long term (current) use of aspirin; Z79.899 Other long term (current) drug therapy; F32.9 Major depressive disorder, single episode, unspecified
CPT/HCPCS: 43239; 45330; 52000; 36415; 71045; 74177; 80053; 82728; 82948; 83540; 83550; 83605; 83690; 83735; 83880; 85014; 85018; 85025; 85027; 85610; 85730; 86850; 86900; 86901; 88305; 93005; 96361; 96374; 96375; 99285; A9270; G0378; G0379; J1100; J2003; J2250; J2405; J2470; J2543; J2704; J3010; J7030; J7120; Q9967

== ENCOUNTER 2024-03-03 07:18 | Emergency (ER) | payer OTHER, SELFPAY ==
--- NOTE | ~2024-03-03 | XR_ITS ---
XR chest 1V portable DATE: 03/03/2024 08:42 INDICATION: Dyspnea TECHNIQUE: Portable semiupright AP view on 03/03/2024 at 0833 hours COMPARISON: 02/14/2024 portable AP chest FINDINGS: Heart size is normal. Is aortic arch calcification. No hilar or mediastinal enlargement is evident. There is moderate elevation right diaphragm. There is mild infiltrate and/or atelectasis in the left lower lobe. The lungs otherwise appear clear of infiltrate or consolidation. No pleural effusion or pulmonary vascular congestion or pneumothorax is detected. Mild thoracic dextroscoliosis. IMPRESSION: Mild left lower lobe infiltrate or atelectasis Moderate elevation right diaphragm Reviewed, dictated and finalized at location A. SETTER
[2024-03-03 07:19] VITALS: BP 129/98; PULSE 130; RESP 16; TEMP 37.2; O2SAT 96
[2024-03-03 07:31] VITALS: BP 142/103; PULSE 142; RESP 29; O2SAT 98
[2024-03-03 07:46] VITALS: BP 137/100; PULSE 135; RESP 28
--- NOTE | 2024-03-03 07:52 | ECG_ITS ---
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
[2024-03-03 08:01] VITALS: BP 158/136; PULSE 146; RESP 27; TEMP 36.6; O2SAT 98
[2024-03-03 08:11] LABS: Fractional Inspired Oxygen 28 %; HCO3 VBG 25.9 mEq/l (24.0-30.0); PCO2 VBG 47.9 mmHg (42.0-48.0)
[2024-03-03 08:13] LABS: Device NASAL CANNULA; PO2 VBG < 27.0 mmHg (35.0-45.0)
[2024-03-03 08:21] LABS: Hematocrit 30.1 % (42.0-52.0); Hemoglobin 9.4 g/dL (14.0-18.0); Mean Corpuscular HGB Conc 31.2 g/dl (32-36); Mean Corpuscular Hemoglobin 28.7 pg (26-34); Mean Corpuscular Volume 91.8 fl (80-100); Mean Platelet Volume 11.3 fl (7.4-10.4); Platelet Count Result 522 k/mm3 (150-375); Red Blood Count 3.28 M/mm3 (4.6-6.20); Red Cell Distribution Width 13.2 % (11.5-14.5); White Blood Count 37.5 K/mm3 (4.5-10.0)
[2024-03-03 08:30] LABS: Lactic Acid Reflex 3.7 mmol/L (0.7-2.0)
[2024-03-03 08:32] LABS: INR 1.1; Prothrombin Time 14.7 Seconds (11.1-14.7)
[2024-03-03 08:39] LABS: Bacteria Urine 4+ /hpf; Need Manual Microscopic Reviewed; RBC Urine >100 /hpf (0-2); Squamous Epithelial Cell Urine Few /hpf (Few); WBC Urine >100 /hpf (0-3)
[2024-03-03 08:40] LABS: Add Urine Microscopic? YES; Alanine Aminotransferase 29 U/L (6-50); Albumin Level 4.4 g/dL (3.5-5.1); Alkaline Phosphatase 131 U/L (38-126); Anion Gap 10 mmol/L (4-12); Appearance Urine Turbid (Clear); Aspartate Amino Transferase 38 U/L (17-59); Bilirubin,Total 0.8 mg/dL (0.2-1.3); Blood Urea Nitrogen 20 mg/dL (9-20); Blood Urine 2+ (Negative); Calcium 9.5 mg/dL (8.4-10.2); Carbon Dioxide 31 mmol/L (22-30); Chloride 96 mmol/L (98-107); Color Urine Red (Yellow); Estimated CRCL calculation 106 ml/min; Estimated Glomerular Filt Rate > 60; Glucose 131 mg/dL (65-110); Glucose Urine UA Negative (Negative); Ketones Urine Negative (Negative); Leukocyte Esterase Ur 3+ LEU/UL (Negative); Lipase 31 U/L (23-300); Magnesium 1.9 mg/dL (1.6-2.3); Potassium 4.5 mmol/L (3.4-5.0); Sodium 137 mmol/L (137-145); Specific Grav Ur 1.018 (1.001-1.035); Urobilinogen Urine 0.2 mg/dL (<2.0)
[2024-03-03 08:42] LABS: NT Pro B Type Natriuretic Pept 458 pg/mL (19.9-100); Troponin I 0.022 ng/mL (0.000-0.034)
[2024-03-03 08:49] LABS: Band Neutrophils Percent 12 % (0-6); Lymphocytes Percent Manual 4 % (18-44); Monocytes Absolute Manual 0.75 K/mm3 (0.1-0.90); Monocytes Percent Manual 2 % (3-9); Neutrophils Absolute Manual 35.25 K/mm3 (1.3-6.7); Neutrophils Percent Manual 82 % (46-73); Platelet Estimate Increased (Adequate); Total Cells Counted 100
[2024-03-03 08:50] LABS: Large Platelets Present; Platelet Clumps Present
[2024-03-03 08:52] LABS: Schistocytes None Seen
[2024-03-03 09:00] VITALS: BP 127/89; PULSE 142; RESP 13; O2SAT 94
[2024-03-03] MEDS: LORazepam INJ (*CRX) 2 MG/ML VIAL IV PUSH (09:00)
[2024-03-03] MEDS: HYDROmorphone HCL INJ (*CRX) 1 MG/ML SYR IV PUSH (09:01)
--- NOTE | 2024-03-03 09:09 | ED.GENADULT ---
HPI - General Adult General Chief complaint: Urogenital-Male Stated complaint: blood in urine Time Seen by Provider: 03/03/24 07:42 History of Present Illness HPI narrative: This is a 59-year-old male with a history of CVA who is nonverbal, bed-bound G-tube dependent with indwelling Coleman presenting for penile bleeding. For the longterm his Coleman was removed and had significant bleeding. Is unclear posttraumatic or not. patient can say yes or no but the answers are not consistent reliable. Patient is DNR DNI comfort measures only. Related Data Home Medications Medication Instructions Recorded Confirmed Adult One Daily Multivitamin 1 tablet feeding tube DAILY 02/14/24 02/14/24 acetaminophen 325 mg capsule 650 mg feeding tube TID PRN Pain 02/14/24 02/14/24 aluminum-mag hydroxide-simethicone 10 ml feeding tube DAILY PRN 02/14/24 02/14/24 200 mg-200 mg-20 mg/5 mL oral susp (Drug) Ingestion aripiprazole 10 mg tablet 10 mg feeding tube DAILY 02/14/24 02/14/24 aspirin 81 mg chewable tablet 81 mg feeding tube DAILY 02/14/24 02/14/24 atorvastatin 80 mg tablet 80 mg feeding tube DAILY 02/14/24 02/14/24 clopidogrel 75 mg tablet 75 mg PO DAILY 02/14/24 02/14/24 fluoxetine 20 mg tablet 20 mg feeding tube DAILY 02/14/24 02/14/24 hydroxyzine HCl 25 mg tablet 25 mg feeding tube BID 02/14/24 02/14/24 levetiracetam 1,000 mg tablet 1,000 mg PO DAILY 02/14/24 02/14/24 promethazine 12.5 mg tablet 12.5 mg feeding tube BID PRN Nausea 02/14/24 02/14/24 sennosides 8.6 mg capsule (senna) 8.6 mg feeding tube DAILY 02/14/24 02/14/24 thiamine HCl (vitamin B1) 100 mg 100 mg feeding tube DAILY 02/14/24 02/14/24 tablet trazodone 50 mg tablet 50 mg feeding tube HS 02/14/24 02/14/24 Allergies Allergy/AdvReac Type Severity Reaction Status Date / Time No Known Allergies Allergy Verified 02/17/24 14:00 [facility] Past Medical History Medical History 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) Cerebrovascular disease, unspecified 09/2023 right hemiparesis Erosive esophagitis Essential (primary) hypertension G tube feedings Generalized anxiety disorder Hyperlipidemia, unspecified Major depressive disorder, single episode, unspecified Other seizures Unspecified severe protein-calorie malnutrition Family History Family History Other Unknown family medical history Social History Social History Social History: Do Not Resuscitate (DNR) per [place] documentation Smoking status: Former smoker Alcohol intake: unknown Substance use: unknown Substance use type: unknown Do You Feel Safe in your Home?: Yes Lack of Transportation: No Lack of Food: Never True Current Housing: I Have Housing Concerned About Future Housing: No Difficulty Paying Gas/Electric Bills: No Difficulty Paying for Meds: No Currently Unemployed: No Education: Don't Know Difficulty w/ Childcare or Family Care: No Additional living arrangements comments: [facility] Occupation/Education: retired Additional occupation/education comments: 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 EYES: EOMI, NOSE: Atraumatic NECK: Trachea midline RESPIRATORY: tachypneic, CT AP CARDIOVASCULAR: tachycardic, warm to touch, diaphoretic ABDOMINAL: soft, G-tube in place, tenderness MUSCULOSKELETAl: contracted NEURO: responds to voice yes or no but not reliable consistent her reproducible SKIN:: diaphoretic PSYCHIATRIC: unable to assess Course Vital Signs Vital signs: Vital Signs Temperature 98.9 F 03/03/24 07:19 Pulse Rate 130 H 03/03/24 07:19 Respiratory Rate 16 03/03/24 07:19 Blood Pressure 129/98 H 03/03/24 07:19 Pulse Oximetry 96 03/03/24 07:19 Temperature 97.6 F 03/03/24 09:30 Pulse Rate 136 H 03/03/24 09:30 Respiratory Rate 22 H 03/03/24 09:30 Blood Pressure 111/82 03/03/24 09:30 Pulse Oximetry 95 03/03/24 09:30 Medical Decision Making MDM Narrative Medical decision making narrative: -Course: 59-year-old debilitated sent from the longterm for penile bleeding. However on arrival patient is tachycardic and toxic appearing. Patient is DNR DNI comfort measures only. I spoke to his medical power of deputy attorney general rashida was his daughter. She says that since he had a massive stroke in the summer he is bed-bound, nonverbal, G-tube dependent and that his quality of life is very very poor. She says that he is frequently ill and has no meaningful quality of life since the stroke. I discussed goals of care as the patient has comfort measures listed on his DNR DNI and she is in agreement that prolonging his life with only prolong his suffering. Patient will be made comfort measures only. Given pain control and anxiety control. Consult placed to Care coordination. Patient will obtain hospice care at his current facility. Patient discharged -DDX includes but is not limited to: Sepsis, UTI dehydration pneumonia bacteremia -Co-morbidities complicating care:CVA, -Social determinants of health: Debilitated. [place] resident. -External Chart Review: [place] paperwork. DNR information. -Hx from independent Sources:Rashida - Daughter - POA -Shared decision making / Disposition: Hospice. Vital Signs Vital Signs: Vital Signs Temperature 98.9 F 03/03/24 07:19 Pulse Rate 130 H 03/03/24 07:19 Respiratory Rate 16 03/03/24 07:19 Blood Pressure 129/98 H 03/03/24 07:19 Pulse Oximetry 96 03/03/24 07:19 Temperature 97.6 F 03/03/24 09:30 Pulse Rate 136 H 03/03/24 09:30 Respiratory Rate 22 H 03/03/24 09:30 Blood Pressure 111/82 03/03/24 09:30 Pulse Oximetry 95 03/03/24 09:30 Lab Data 03/03/24 08:06 03/03/24 08:06 Labs: Lab Results 03/03/24 Range/Units 08:06 WBC 37.5 H (4.5-10.0) K/mm3 RBC 3.28 L (4.6-6.20) M/mm3 Hgb 9.4 L (14.0-18.0) g/dL Hct 30.1 L (42.0-52.0) % MCV 91.8 (80-100) fl MCH 28.7 (26-34) pg MCHC 31.2 L (32-36) g/dl RDW 13.2 (11.5-14.5) % Plt Count 522 H D (150-375) k/mm3 MPV 11.3 H (7.4-10.4) fl Immature Gran % (Auto) Not Reportable Neut % (Auto) Not Reportable Lymph % (Auto) Not Reportable [place] % (Auto) Not Reportable Eos % (Auto) Not Reportable Baso % (Auto) Not Reportable Lymph # (Auto) Not Reportable [place] # (Auto) Not Reportable Eos # (Auto) Not Reportable Baso # (Auto) Not Reportable Abs Immat Gran (auto) Not Reportable Absolute Neuts (auto) Not Reportable Absolute Nucleated RBC Not Reportable Total Counted 100 Neutrophils % (Manual) 82 H (46-73) % Band Neutrophils % 12 H (0-6) % Lymphocytes % (Manual) 4 L (18-44) % Monocytes % (Manual) 2 L (3-9) % Nucleated RBC % Not Reportable Abs Neuts (Manual) 35.25 H (1.3-6.7) K/mm3 Abs Lymphs (Manual) 1.50 (1.1-4.5) K/mm3 Abs Monocytes (Manual) 0.75 (0.1-0.90) K/mm3 Platelet Estimate Increased (Adequate) Clumped Platelets Present Large Platelets Present Schistocytes None seen PT 14.7 (11.1-14.7) Seconds INR 1.1 APTT 28.0 (22.3-36.8) Seconds Sodium 137 (137-145) mmol/L Potassium 4.5 (3.4-5.0) mmol/L Chloride 96 L (98-107) mmol/L Carbon Dioxide 31 H (22-30) mmol/L Anion Gap 10 (4-12) mmol/L BUN 20 D (9-20) mg/dL Creatinine 0.70 (0.7-1.3) mg/dL Estim Creat Clear Calc 106 ml/min Estimated GFR > 60 (59 - ) Glucose 131 H (65-110) mg/dL Lactic Acid 3.7 H (0.7-2.0) mmol/L Calcium 9.5 (8.4-10.2) mg/dL Phosphorus 4.0 (2.5-4.5) mg/dL Magnesium 1.9 (1.6-2.3) mg/dL Total Bilirubin 0.8 (0.2-1.3) mg/dL AST 38 (17-59) U/L ALT 29 (6-50) U/L Alkaline Phosphatase 131 H (38-126) U/L Troponin I 0.022 (0.000-0.034) ng/mL NT-Pro-B Natriuret Pep 458 H (19.9-100) pg/mL Total Protein 8.0 (6.3-8.2) g/dL Albumin 4.4 (3.5-5.1) g/dL Lipase 31 (23-300) U/L TSH (Reflex) 2.630 (0.465-4.68) uIU/mL Urine Color Red H (Yellow) Urine Appearance Turbid H (Clear) Urine pH 8.0 (5.0-9.0) Ur Specific [place] 1.018 (1.001-1.035) Urine Protein TNP Urine Glucose (UA) Negative (Negative) mg/dL Urine Ketones Negative (Negative) mg/dL Ur Blood (Man) 2+ H (Negative) Urine Nitrate TNP Urine Bilirubin TNP Urine Urobilinogen 0.2 (<2.0) mg/dL Add Ur Microanalysis Reviewed Leukocyte Esterase Rfl 3+ H (Negative) AMINTA/UL Urine RBC >100 H (0-2) /hpf Urine WBC >100 H (0-3) /hpf Ur Squamous Epith Cells Few (Few) /hpf Urine Bacteria 4+ H /hpf Urine Casts 3-5 ABG Data ABG results: 03/03/24 08:07 VBG pH 7.350 VBG pCO2 47.9 VBG pO2 < 27.0 L VBG HCO3 25.9 O2 Delivery Device Nasal cannula O2 Liters/Min 2.0 FiO2 28 Discharge Plan Discharge Clinical Impression: Sepsis, CVA, old, dysphagia Patient Disposition: Hospice [facility] Inpatient Condition: Terminal Instructions: Antibiotic Form, Stroke (DC) Additional Instructions: Cale was seen for bleeding from his penis. Coleman was placed which controlled the bleeding. However he is very ill. In accordance with his wishes constance only performed comfort measures with the goal of alleviating pain and anxiety without prolonging his life. Hospice care will be provided at his current facility. Prescriptions: No Action polyethylene glycol 3350 [Miralax] 17 gram powder in packet 17 g feeding tube DAILY 4 Days Qty: 14 0RF acetaminophen 325 mg Capsule 650 mg feeding tube TID PRN (Reason: Pain) atorvastatin 80 mg tablet 80 mg feeding tube DAILY clopidogrel 75 mg tablet 75 mg PO DAILY fluoxetine 20 mg tablet 20 mg feeding tube DAILY aspirin 81 mg Tablet,Chewable 81 mg feeding tube DAILY aripiprazole 10 mg tablet 10 mg feeding tube DAILY levetiracetam 1,000 mg tablet 1,000 mg PO DAILY Rx Instructions: g tube Adult One Daily Multivitamin 1 tablet feeding tube DAILY trazodone 50 mg Tablet 50 mg feeding tube HS promethazine 12.5 mg Tablet 12.5 mg feeding tube BID PRN (Reason: Nausea) thiamine HCl (vitamin B1) 100 mg Tablet 100 mg feeding tube DAILY hydroxyzine HCl 25 mg Tablet 25 mg feeding tube BID alum-mag hydroxide-simeth 200-200-20 mg/5 mL Suspension 10 ml feeding tube DAILY PRN (Reason: (Drug) Ingestion) senna 8.6 mg Capsule 8.6 mg feeding tube DAILY polyethylene glycol 3350 [Miralax] 17 gram Powder In Packet 17 g PO QAM 14 Days Qty: 14 0RF pantoprazole [Protonix] 40 mg tablet,delayed release (DR/EC) 40 mg PO BID Qty: 60 1RF ferrous sulfate 324 mg (65 mg iron) tablet,delayed release (DR/EC) 324 mg PO DAILY Qty: 30 2RF Follow-up/Referrals: UNKNOWN,DOCTOR [Primary Care Provider] -
[2024-03-03 09:30] VITALS: BP 111/82; PULSE 136; RESP 22; TEMP 36.4; O2SAT 95
--- NOTE | 2024-03-03 09:56 | PC.NURSE ---
ERP spoke with daughter and he reports pt's is coming in to ED to speak with care management and hospice
[2024-03-03 11:16] LABS: Reflex Lactic Acid Yes or No Add Lactic
--- NOTE | 2024-03-03 12:24 | PCCCNOTE ---
0900:Called to the ED for Hospice placement of patient. Call placed to pts daughter, Swapna Tejeda, . She is his POA. She choose to use [facility] or [facility]. Call placed to [facility] and they would not have the ability to sign pt up until Wednesday or Wednesday next week. Call placed to [facility], information faxed to them. Pt will be discharged back to [facility] and an community relations coordinator will meet with family there to get pt started today.
== END 2024-03-03 11:15 | disposition hospice, inpatient (51) ==
PROVIDERS: Emergency Provider Emergency Medicine
DX: A41.9 Sepsis, unspecified organism (principal); I69.320 Aphasia following cerebral infarction; R13.10 Dysphagia, unspecified; I10 Essential (primary) hypertension; E78.5 Hyperlipidemia, unspecified; F41.1 Generalized anxiety disorder; Z87.891 Personal history of nicotine dependence
CPT/HCPCS: 36415; 51700; 71045; 80053; 81001; 82803; 83605; 83690; 83735; 83880; 84100; 84443; 84484; 85025; 85610; 85730; 87040; 87077; 87086; 87186; 93005; 96374; 96375; 99284; J1171; J2060